=== PATIENT | female | born 1940 | race Two or more races ===

== ENCOUNTER 2019-04-26 08:44 | Inpatient (IN) | payer OTHER ==
[2019-04-26] VITALS (24 sets, daily range): BP systolic 62–186; BP diastolic 18–119
[~2019-04-26] VITALS: Ht 157.5 cm; Wt 86.6 kg
[2019-04-26] MEDS: DEXT 5% /NACL 0.9% 1,000 ML IV SCH (07:59)
[~2019-04-26 08:44] MED LIST: FURO-572 PO; LORA10TA19 PO; PRED20TA5 PO; Z-PACK
--- NOTE | 2019-04-26 08:44 | NUR ---
Patient BIBA ALS accompanied by FD, transferred to bed 8. RN evaluating patient at bedside.
[2019-04-26] MEDS ORDERED: NACL 0.9% 1,000 ML IV SCH (09:04)
[2019-04-26] MEDS ORDERED: cefTRIAXone 1,000 MG in DEXT 5% MINI-BAG PLUS 50 ML IV ONE (09:05)
--- NOTE | 2019-04-26 09:20 | NUR ---
PT PLACED ON SAMMI HUGGER, 3 LEAD ECG AND PULSE OX MONITOR.
[2019-04-26 09:27] LABS: MEAN CORPUSCULAR HEMOGLOBIN 31 pg (27-31); MEAN CORPUSCULAR HGB CONC 31 g/dL (33-37); MEAN CORPUSCULAR VOLUME 98.2 fL (80-94); PLATELET COUNT (AUTO) 531 K/uL (140-450)
--- NOTE | 2019-04-26 09:28 | NUR ---
CLEANED WITH SOAPY WARM WATER---PT REMAINS NON VERBAL BUT ABLE TO HELP WITH ATTEMPTING TO MOVE FROM ONE SIDE TO ANOTHER.
[2019-04-26] MEDS ORDERED: cefTRIAXone 1,000 MG VIAL ONE ×2 (09:32→10:14)
--- NOTE | 2019-04-26 09:36 | NUR ---
MELTON BEING PLACED BY DIRECTOR OF DATABASE MARKETING STUDENTS AND INSTRUCTOR.
[2019-04-26] MEDS ORDERED: IBUP-2213 PO (09:39)
[2019-04-26] MEDS ORDERED: HYDR1TAB73 PO (09:39)
[2019-04-26] MEDS ORDERED: [UNRECOGNIZED DRUG - CODE] PO (09:39)
[2019-04-26] MEDS ORDERED: ESOM40EC PO (09:39)
[2019-04-26] MEDS ORDERED: METF-988 PO (09:39)
[2019-04-26] MEDS ORDERED: ZOLP5TAB1 PO ×2 (09:39→20:31)
[2019-04-26] MEDS ORDERED: ICOS1SGL PO (09:39)
[2019-04-26] MEDS ORDERED: ALBU0.0912 IH (09:39)
[2019-04-26 09:44] LABS: HEMOGLOBIN 5.5 g/dL (12.0-16.0); WHITE BLOOD COUNT (AUTO) 28.6 K/uL (4.8-10.8)
[2019-04-26 09:45] LABS: HEMATOCRIT 17.7 % (36-48)
--- NOTE | 2019-04-26 09:45 | NUR ---
TAN SPOKE WITH OTS SON WHO STATED HE WOULD STOP BY LATER, DID NOT GIVE ETA
--- NOTE | 2019-04-26 09:45 | NUR ---
hemaglobin 5.5 hematocrit 17.7, received from lab reported to dr villalobos
[2019-04-26 09:47] LABS: LYMPHOCYTES % (MANUAL) 7 % (20-46)
--- NOTE | 2019-04-26 09:47 | NUR ---
wbc 28.[address] villalobos
[2019-04-26 09:48] LABS: EOSINOPHILS % (MANUAL) 2 % (0-4); MONOCYTES % (MANUAL) 8 % (5-12)
--- NOTE | 2019-04-26 09:50 | NUR ---
78 Y/F BIBA FOR ALOC AND HYPOGLYCEMIA PER EMS. PT NONVERBAL, TACHYPNIC WITH LABORED, EVEN RESPIRATIONS AT 26 PER MIN. PT BROUGHT IN ON NONREBREATHER AT 15L/ MIN. LUNGS CLEAR. ABDOMEN LARGE, DISTENDED AND ROUND. PT APPEARS SOILED, B FEET ARE SOILED. HX- CHF, PNEUMONIA NKDA
[2019-04-26 09:54] LABS: ALBUMIN 1.8 g/dL (3.4-5.0); ANION GAP 24.1 (8-16); ASPARTATE AMINOTRANSFERASE 364 U/L (15-37); CHLORIDE 111 mmol/L (98-107); CREATININE 1.6 mg/dL (0.6-1.3); GLUCOSE 80 mg/dL (74-106); SODIUM SERUM 144 mmol/L (136-145); TOTAL BILIRUBIN 1.7 mg/dL (0.0-1.0)
[2019-04-26 09:58] LABS: POTASSIUM 6.1 mmol/L (3.5-5.1); UREA NITROGEN, BLOOD 117 mg/dL (7-18)
--- NOTE | 2019-04-26 10:47 | NUR ---
REDNESS/ RASH ON B CHEEKS OF FACE, WOUNDS WITH VARIOUS STAGING OF HEALING ON B LEGS, REDDENED SACRAL AREA. NO OPEN WOUNDS NOTED. PT WITH MAL ODOR AND BAD HYGIENE.
--- NOTE | 2019-04-26 10:49 | NUR ---
TAN SPOKE WITH RECREATIONAL PROGRAMS DIRECTOR IN REGARD TO POSSIBLE PT NEGLET AT HOME. RECREATIONAL PROGRAMS DIRECTOR STATE THEY WILL CALL BACK
[2019-04-26 11:02] LABS: APPEARANCE,URINE HAZY (CLEAR); BILIRUBIN,URINE NEGATIVE (NEGATIVE); BLOOD, URINE NEGATIVE (NEGATIVE); COLOR,URINE YELLOW (YELLOW); LEUKOCYTE ESTERASE ,URINE 1+ (NEGATIVE); NITRITE, URINE NEGATIVE (NEGATIVE); UGLUCOSE NEGATIVE (NEGATIVE)
[2019-04-26 11:14] LABS: RBC,URINE 0 /HPF (0-5)
--- NOTE | 2019-04-26 11:34 | NUR ---
LAB AT BEDSIDE.
[2019-04-26] MEDS ORDERED: NACL 0.9% 1,000 ML IV ONE ×3 (11:50→14:25)
--- NOTE | 2019-04-26 12:00 | NUR ---
DR. NUGENT AT BEDSIDE.
--- NOTE | 2019-04-26 12:03 | NUR ---
A SECOND BOLUS STARTED
[2019-04-26] MEDS ORDERED: SODIUM POLYSTYRENE 15 GM/60 ML UDBTL PR ONE (12:35)
--- NOTE | 2019-04-26 13:00 | NUR ---
CALLED [facility] AND SPOKE WITH NELSON, REPORT NUMBER [id number]
--- NOTE | 2019-04-26 13:07 | NUR ---
NADR, PT MUMBLING. UNCOMPREHENSIVE.
[2019-04-26] MEDS ORDERED: VANCOMYCIN PER PHARMACY MC PRN (13:15)
[2019-04-26] MEDS ORDERED: DEXT 5% / NACL 0.45% 1,000 ML IV ONE (13:15)
[2019-04-26] MEDS ORDERED: ACETAMINOPHEN 325 MG TAB PO PRN (13:15)
--- NOTE | 2019-04-26 13:29 | NUR ---
NG TUBE INSERTED BY NÉSTOR PEDRAZA AND ROSEMARY RN ACCOMPANIED BY FLORA PEDRAZA, GASTRIC RESIDUAL RETURN
--- NOTE | 2019-04-26 13:34 | NUR ---
Dr. Crawford is evaluating the patient at bedside.
[2019-04-26] MEDS ORDERED: SODIUM POLYSTYRENE 15 GM/60 ML UDBTL NG ONE (14:00)
[2019-04-26] MEDS ORDERED: LORazepam 2 MG/ML VIAL IVP SCH (14:00)
--- NOTE | 2019-04-26 14:45 | NUR ---
DR. PRINGLE CAME IN TO SEE PATIENT AT BEDSIDE, WILL FOLLOW UP WITH NEW ORDERS.
--- NOTE | 2019-04-26 14:45 | NUR ---
Patient will be admitted to care of DR. WEBSTER. Admited to ICU . Will go to room 3 . Belongings list completed. Report to MILO VALDIVIA.
--- NOTE | 2019-04-26 14:45 | NUR ---
RECEIVED PATIENT TRANSFERRED FROM ER VIA GURNEY, PT IS AAOX1, FOLLOW COMMANDS SOMETIMES, AGITATED, RESTLESSNESS, TEMP 96.4, BP 94/50, RR 36, O2 SAT 96%, FLACC 7, NO S/S OF DISTRESS, RHONCHI LUNG SOUNDS ALINA. ON O2 AT 5L VIA NC, SR ON GLOVE TURNER AND FORMER, CAP REFILL <2 SEC, PITTING 3+ EDEMA ON ALINA.LOWER EXTREMITIES, MELTON CATHETER PLACED IN ER WITH CLEAR YELLOW URINE VIA GRAVITY, LARGE DISTENDED ABDOMEN NOTED, NGT PLACED IN ER, POSITIVE PLACEMENT CHECKED, SKIN IS WARM AND DRY TO TOUCH, OPEN WOUND PRESENT, PICTURE TAKEN (SEE WOUND ASSESSMENT), ABLE TO MOVE ALL EXTREMITIES, GENERALIZED WEAKNESS NOTED, IV TO RIGHT AC 20GA, PATENT AND SL. HOB EVEVATED 30 DEGREES, SAFETY MEASURES IN PLACE, POSITION CHANGED FOR COMFORT, WILL CONTINUE TO MONITOR.
[2019-04-26] MEDS ORDERED: DEXTROSE 50% 50 ML SYR IVP PRN (14:50)
[2019-04-26] MEDS ORDERED: Z-GUARD PASTE TP ONE (14:51)
[2019-04-26] MEDS ORDERED: VANCOMYCIN HCL 750 MG in DEXTROSE 5% 250 ML IV SCH (15:00)
--- NOTE | 2019-04-26 15:10 | NUR ---
DR. URIBE SPOKE TO PATIENT'S SON FUNMILAYO SORENSEN ON THE PHONE REGARDING PATIENT'S CONDITION AND NEEDS FOR CENTRAL LINE AND BLOOD TRANSFUSION, CONSENT OBTAINED AT THIS TIME, TWO RNS WITNESS.
--- NOTE | 2019-04-26 15:50 | NUR ---
TIME OUT FOR CENTRAL LINE INSERTION, DR. URIBE WILL PERFORM THE PROCEDURE, US TECH AND RN AT BEDSIDE FOR ASSIST.
[2019-04-26] MEDS ORDERED: ACETAMINOPHEN 325 MG TAB PO SCH (16:00)
[2019-04-26 16:18] LABS: FREE T4 (FREE THYROXINE) 1.03 ng/dL (0.76-1.46); MAGNESIUM 2.6 mg/dL (1.8-2.4); PHOSPHORUS 8.5 mg/dL (2.5-4.9); THYROID STIMULATING HORMONE 7.7 uIU/mL (0.34-3.74)
[2019-04-26 16:33] LABS: PROTHROMBIN TIME 15.8 secs (10.8-13.4)
--- NOTE | 2019-04-26 16:40 | NUR ---
DR. ADLER INSERTED CENTRAL LINE TO LEFT IJ TLC, X-RAY DONE, WAITING FOR CONFIRMATION OF PLACEMENT.
[2019-04-26] MEDS ORDERED: CRUSHER, PILL MC ONE (17:36)
--- NOTE | 2019-04-26 17:40 | NUR ---
US ABDOMEN AT BEDSIDE
[2019-04-26] MEDS: BLOOD GLUCOSE MONITORING 1 DEV DEV FS SCH ×2 (17:50→20:38)
--- NOTE | 2019-04-26 17:52 | NUR ---
BLOOD TRANSFUSION STARTED, VSS CHECKED AND BENADRYL GIVEN BEFORE, WILL CONTINUE CLOSE MONITOR.
[2019-04-26] MEDS: Z-GUARD PASTE TP SCH (18:54)
[2019-04-26] MEDS: ALBUTEROL SULFATE/IPRATROPIU 3 ML SOL IH SCH (18:55)
[2019-04-26] MEDS: NOREPINEPHRINE 16 MG in DEXTROSE 5% 250 ML IV PRN (18:57)
--- NOTE | 2019-04-26 19:25 | NUR ---
RT IS CURRENTLY AT BEDSIDE PROVIDING BREATHING TREATMENT
--- NOTE | 2019-04-26 19:30 | NUR ---
BEDSIDE SHIFT REPORT RECEIVED FROM DAY SHIFT NURSE. PT IS A&OX1 TO NAME. GCS=8. AROUSABLE TO SHAKING AND LIGHT PAIN. EYES ARE SLUGGISH. 5MM. O2 VIA NC AT 2 LPM. LUNG SOUNDS CLEAR THROUGHOUT. PT HAS LEFT IJ THAT IS CURRENTLY RUNNING BLOOD TRANSFUSION, D5NS AT 50ML/HR. PT HAS RIGHT AC 20G RUNNING LEVOPHED DRIP AT 5 MCG/KG/MIN TO MAINTAIN SBP AT ABOVE 90. BOTH SITES ARE ASYMPTOMATIC, PATENT AND INTACT. PT ABDOMEN IS ROUND, FIRM. BOWEL SOUNDS HEARD. PT HAS NGT. PT IS NPO EXCEPT MEDS. MELTON CATHETER WAS FOUND. PT HAS BILATERAL LOWER EXTREMITY SCABS AND INCONTINENT DERMATITIS. BED IS LOCKED IN LOWEST POSITION, CALL LIGHT WITHIN REACH, WILL CONTINUE TO MONITOR. Addendum: 04/27/19 at 0022 by Arnoldo Morfin RN RN IVF IS ACTUALLY D5 1/2NS AT 100 ML/HR. LEVOPHED DRIP CONCENTRATION 16 MG. DRY WEIGHT 80KG. 2+ PITTING EDEMA PRESENT ALL FOUR EXTREMITIES. CLEAR YELLOW URINE NOTED INSIDE MELTON BAG. TEMP 98.0.
[2019-04-26] MEDS: ALBUTEROL SULFATE/IPRATROPIU 3 ML SOL IH PRN (20:00)
[2019-04-26] MEDS ORDERED: PIPERACILLIN/TAZOBACTAM 2.25 GM VIAL IV ONE (20:15)
[2019-04-26] MEDS: PIPERACILLIN/TAZOBACTAM 2.25 GM in DEXTROSE 5% 50 ML IV SCH (20:27)
[2019-04-26] MEDS ORDERED: BISA-188 PO (20:31)
--- NOTE | 2019-04-26 20:45 | NUR ---
1 UNIT OF PRBC's COMPLETE, FLUSHED LINE WITH NS AND SALINE LOCKED. NO ADVERSE REACTION NOTED, WILL FOLLOWUP WITH CBC AND FURTHER ORDERS.
[2019-04-26] MEDS ORDERED: ICOSAPENT ETHYL 1 GM PO SCH (21:00)
[2019-04-26] MEDS ORDERED: SODIUM BICARBONATE 8.4% PFS 50 MEQ/50 ML SYR IVP ONE ×2 (21:00)
[2019-04-26] MEDS: DOCUSATE SODIUM 100 MG GELCAP PO SCH (21:00)
[2019-04-26] MEDS ORDERED: metroNIDAZOLE 500 MG/NS PREMIX 100 ML IV SCH (21:00)
--- NOTE | 2019-04-26 21:00 | NUR ---
CALLED FAMILY. UPDATED THEM ON POC.
[2019-04-26] MEDS: SODIUM BICARBONATE 8.4% 50 MEQ in NACL 0.9% 1,000 ML IV SCH (21:05)
[2019-04-26] MEDS: LACTULOSE 20 GM/30 ML UDC PO SCH (21:15)
--- NOTE | 2019-04-26 21:15 | NUR ---
ER MD DR. HUDSON AND RT's AT BEDSIDE TO START INTUBATION. 20MG ETOMIDATE ORDERED AND GIVEN, FLUSHED WITH 10 ML NS, 50MG ROCURONIUM ORDERED AND GIVEN FOLLOWED WITH 10ML FLUSH. SUCCESSFUL INTUBATION AT 2114 ON FIRST ATTEMPT, 24 AT LIP LINE, POSITIVE LUNG SOUNDS, CONNECTED TO VENT WITH ACVC 16, FI02 100%, TV 450, PEEP 5. SATURATIONS 100%. VISIBLE AND EQUAL CHEST RISE. ALL SAFETY PRECAUTIONS IN PLACE. PRIMARY AND CHARGE NURSE AT BEDSIDE. XRAY COMPLETE FOR PLACEMENT AND TO CONFIRM NGT PLACEMENT. WILL FOLLOWUP WITH NEW ORDERS.
--- NOTE | 2019-04-26 21:18 | NUR ---
RADIOLOGY AT BEDSIDE FOR CXR
[2019-04-26] MEDS ORDERED: ETOMIDATE 20 MG/10 ML VIAL IVP ONE (21:20)
[2019-04-26] MEDS ORDERED: ROCURONIUM 50 MG/5 ML VIAL IV ONE (21:20)
[2019-04-26 21:34] LABS: MEAN CORPUSCULAR HEMOGLOBIN 31 pg (27-31); MEAN CORPUSCULAR HGB CONC 33 g/dL (33-37); MEAN CORPUSCULAR VOLUME 93.1 fL (80-94); PLATELET COUNT (AUTO) 466 K/uL (140-450); RED BLOOD CELL COUNT(AUTO) 2.08 MIL/uL (4.20-5.40); RED CELL DISTRIBUTION WIDTH 16.6 % (11.6-13.7)
--- NOTE | 2019-04-26 21:45 | NUR ---
SPUTUM CULTURE COLLECTED AND SENT TO LAB.
[2019-04-26 21:49] LABS: HEMATOCRIT 19.4 % (36-48); HEMOGLOBIN 6.3 g/dL (12.0-16.0); WHITE BLOOD COUNT (AUTO) 29.9 K/uL (4.8-10.8)
--- NOTE | 2019-04-26 21:55 | NUR ---
LAB CALLED FOR CRITICAL LABS. REPORTED VALUES TO DR. EVANS. ORDERED UNIT OF BLOOD.
[2019-04-26 21:57] LABS: ALBUMIN 1.6 g/dL (3.4-5.0); ANION GAP 19.6 (8-16); ASPARTATE AMINOTRANSFERASE 361 U/L (15-37); CARBON DIOXIDE 18.7 mmol/L (21-32); CHLORIDE 113 mmol/L (98-107); CREATININE 1.6 mg/dL (0.6-1.3); GLUCOSE 165 mg/dL (74-106); POTASSIUM 5.3 mmol/L (3.5-5.1); SODIUM SERUM 146 mmol/L (136-145); TOTAL BILIRUBIN 1.9 mg/dL (0.0-1.0)
[2019-04-26 21:59] LABS: UREA NITROGEN, BLOOD 114 mg/dL (7-18)
--- NOTE | 2019-04-26 22:00 | NUR ---
LAB CALLED FOR TWO CRITICAL VALUES. LACTIC ACID 4.5 AND BUN 114. DID NOT REPORT TO DOCTOR DUE TO VALUES TRENDING DOWNWARD.
--- NOTE | 2019-04-26 22:10 | NUR ---
PROVIDED VAP ORAL CARE, PATIENT HAS SMALL AMOUNT OF BLOOD NOTED, HAS MISSING TOOTH AND MOUTH IS DRY, GUMS ARE SENSITIVE. WILL CONTINUE TO MONITOR.
--- NOTE | 2019-04-26 23:37 | NUR ---
RT DECREASED FI02 TO 30%.
[2019-04-27] VITALS (103 sets, daily range): BP systolic 59–147; BP diastolic 17–99
--- NOTE | 2019-04-27 00:03 | NUR ---
RADIOLOGIST AWARE THAT THERE IS ORDER FOR HEAD CT, PATIENT IS TOO UNSTABLE AT THIS TIME TO LEAVE UNIT FOR EXAM, PRESSORS IN PLACE, BLOOD TRANSFUSION INFUSING AND PENDING ON SEDATION MEDICATIONS. WILL FOLLOWUP WHEN PATIENT IS AVAILABLE.
[2019-04-27] MEDS: MIDAZOLAM MDV 50 MG in NACL 0.9% 40 ML IV PRN ×2 (01:18→17:21)
--- NOTE | 2019-04-27 01:18 | NUR ---
STARTED VERSED DRIP
[2019-04-27] MEDS: fentaNYL 1 MG in NACL 0.9% 80 ML IV PRN ×2 (01:32→17:18)
--- NOTE | 2019-04-27 01:32 | NUR ---
STARTED FENTANYL DRIP
--- NOTE | 2019-04-27 01:47 | NUR ---
RT INCREASED FLOW TO 60
--- NOTE | 2019-04-27 02:47 | NUR ---
INCREASED FLOW TO 80
[2019-04-27] MEDS ORDERED: PHENYLEPHRINE 10 MG/ML VIAL ONE (03:07)
[2019-04-27] MEDS: PHENYLEPHRINE 40 MG in NACL 0.9% 250 ML IV PRN ×4 (03:30→19:58)
--- NOTE | 2019-04-27 03:30 | NUR ---
NEOSYNEPHRINE PRESSOR STARTED, PATIENT ALREADY ON LEVOPHED DRIP AND MAXED OUT AT 30MCG/MIN. NEW PERIPHERAL IV STARTED AT LEFT AC 20G, GOOD BLOOD RETURN, SUCCESSFUL ON FIRST ATTEMPT, PATENT WITHOUT SYMPTOMS. Y TUBE PRIMED WITH NS AND READY FOR BLOOD TRANSFUSION. WILL CARRY OUT.
--- NOTE | 2019-04-27 03:55 | NUR ---
STARTED BLOOD TRANSFUSION
[2019-04-27] MEDS ORDERED: PIPERACILLIN/TAZOBACTAM 2.25 GM VIAL IV ONE (04:30)
[2019-04-27] MEDS: PIPERACILLIN/TAZOBACTAM 2.25 GM in DEXTROSE 5% 50 ML IV SCH ×3 (05:00→20:09)
--- NOTE | 2019-04-27 05:46 | NUR ---
RESIDENT MD MADE AWARE THAT PATIENT IS MAXED ON BOTH PRESSORS-NEOSYNEPHRINE AND LEVOPHED. BLOOD PRESSURE 85/45. ALSO MADE AWARE THAT BLOOD TRANSFUSION CURRENTLY IN PLACE-2 UNIT. PENDING NEW ORDERS.
[2019-04-27] MEDS ORDERED: NACL 0.9% 500 ML IV SCH (05:50)
[2019-04-27] MEDS: ALBUTEROL SULFATE/IPRATROPIU 3 ML SOL IH SCH ×3 (06:31→20:19)
[2019-04-27] MEDS ORDERED: VASOPRESSIN 20 UNITS/ML VIAL ONE (06:48)
[2019-04-27] MEDS: NOREPINEPHRINE 16 MG in DEXTROSE 5% 250 ML IV PRN ×2 (07:09→16:43)
--- NOTE | 2019-04-27 07:30 | NUR ---
RECEIVED BEDSIDE REPORT FROM COMPOUND COATING MACHINE OFFBEARER NURSE, PT IS SEDATED RASS -4, PERRL, UNABLE TO FOLLOW COMMANDS, FLACC 0, TEMP 98.9, BP 60/35, RR 26, O2 SAT 99%, ETT TO VENT , AC MODE WITH FIO2 30 TV 450, R 16, PEEP 5, NO S/S OF DISTRESS, RHONCHI LUNG SOUNDS ALINA. ST ON NEWS ASSISTANT, CAP REFILL <2 SEC, PITTING 3+ EDEMA ON ALINA.LOWER EXTREMITIES, MELTON CATHETER IN PLACE WITH CLOUDY MARY URINE VIA GRAVITY, LARGE DISTENDED ABDOMEN NOTED, NGT IN PLACE, POSITIVE PLACEMENT CHECKED, SKIN IS WARM AND DRY TO TOUCH, OPEN WOUND PRESENT,(SEE WOUND ASSESSMENT), GENERALIZED WEAKNESS TO ALL EXTREMITIES, CENTRAL LINE TO LIJ, TLC, RUNNING LEVOPHED AT 30 MCG/MIN, JENNIFER AT 150 MCG/MIN, VERSED AT 1MG/HR, FENTANYL AT 0.5 MCG/KG/MIN, AND D5NS AT 50ML/HR, IV TO LEFT AC 20GA, PATENT AND SL. HOB ELEVATED 30 DEGREES, SAFETY MEASURES IN PLACE, ORAL CARE PROVIDED, POSITION CHANGED FOR OFF LOAD PRESSURE , WILL CONTINUE TO MONITOR.
--- NOTE | 2019-04-27 07:40 | NUR ---
DR. PRINGLE CAME IN TO SEE PATIENT AT BEDSIDE, WILL FOLLOW UP WITH NEW ORDERS.
[2019-04-27] MEDS: VASOPRESSIN 20 UNITS in NACL 0.9% 250 ML IV SCH ×2 (07:48→16:24)
[2019-04-27] MEDS: BLOOD GLUCOSE MONITORING 1 DEV DEV FS SCH ×4 (08:21→21:00)
[2019-04-27] MEDS: INSULIN LISPRO SLIDING SCALE 100 UNITS/ML VIAL SUBQ PRN ×4 (08:24→20:10)
--- NOTE | 2019-04-27 08:49 | NUR ---
PATIENT HAS BEEN SCREENED AND CATEGORIZED HIGH NUTRITION RISK. PATIENT WILL BE SEEN WITHIN 1-2 DAYS OF ADMISSION. 04/27/19-04/28/[address]
[2019-04-27] MEDS: SODIUM BICARBONATE 8.4% 50 MEQ in NACL 0.9% 1,000 ML IV SCH ×2 (08:50→19:00)
--- NOTE | 2019-04-27 09:20 | NUR ---
SCHEDULED MEDICATION GIVEN VIA NGT, NO RESIDUALS, PT TOLERATED WELL.
[2019-04-27] MEDS: PANTOPRAZOLE 40 MG INJ VIAL IVP SCH (09:25)
[2019-04-27] MEDS: DOCUSATE SODIUM 100 MG GELCAP PO SCH (09:26)
[2019-04-27] MEDS: LACTULOSE 20 GM/30 ML UDC PO SCH (09:26)
[2019-04-27] MEDS: Z-GUARD PASTE TP SCH (09:26)
--- NOTE | 2019-04-27 10:00 | NUR ---
NO CHANGE OF CONDITION, VSS, FLACC 0, POSITION CHANGED FOR OFF LOAD PRESSURE.
[2019-04-27 10:01] LABS: BASOPHILS # (AUTO) 0.1 K/uL (0.00-0.22); BASOPHILS % (AUTO) 0.3 % (0.0-2.0); EOSINOPHILS # (AUTO) 0.3 K/uL (0-0.4); EOSINOPHILS % (AUTO) 1.3 % (0.0-4.0); HEMATOCRIT 26.5 % (36-48); HEMOGLOBIN 8.8 g/dL (12.0-16.0); MEAN CORPUSCULAR HEMOGLOBIN 30 pg (27-31); MEAN CORPUSCULAR HGB CONC 33 g/dL (33-37); MEAN CORPUSCULAR VOLUME 90.7 fL (80-94); MONOCYTES # (AUTO) 3.5 K/uL (0.8-1.0); MONOCYTES % (AUTO) 14.1 % (1.7-9.3); NEUTROPHILS % (AUTO) 76.3 % (42.2-75.2); PLATELET COUNT (AUTO) 498 K/uL (140-450); RED BLOOD CELL COUNT(AUTO) 2.92 MIL/uL (4.20-5.40); RED CELL DISTRIBUTION WIDTH 16.8 % (11.6-13.7); WHITE BLOOD COUNT (AUTO) 24.8 K/uL (4.8-10.8)
[2019-04-27] MEDS ORDERED: PROBIOTIC SCREEN 1 EA MISC MC PRN (10:35)
[2019-04-27 11:24] LABS: ANION GAP 21.5 (8-16); CARBON DIOXIDE 17.7 mmol/L (21-32); CHLORIDE 113 mmol/L (98-107); CREATININE 1.7 mg/dL (0.6-1.3); GLUCOSE 223 mg/dL (74-106); POTASSIUM 5.2 mmol/L (3.5-5.1); SODIUM SERUM 147 mmol/L (136-145)
[2019-04-27 11:25] LABS: ALBUMIN 1.7 g/dL (3.4-5.0); BILIRUBIN,DIRECT 1.8 mg/dL (0.0-0.3); TOTAL BILIRUBIN 2.2 mg/dL (0.0-1.0)
[2019-04-27 11:41] LABS: UREA NITROGEN, BLOOD 114 mg/dL (7-18)
--- NOTE | 2019-04-27 12:00 | NUR ---
NO S/S OF DISTRESS, STILL SEDATED WITH RASS -3, VSS, FLACC 0, ORAL CARE PROVIDED, POSITION CHANGED FOR OFF LOAD PRESSURE.
[2019-04-27 12:02] LABS: CHOL/HDL RATIO 6.7 (1-4.5)
--- NOTE | 2019-04-27 12:20 | NUR ---
DR. ASHRAF CAME IN TO SEE PATIENT AT BEDSIDE, WILL FOLLOW UP WITH NEW ORDERS.
[2019-04-27 12:44] LABS: MAGNESIUM 2.1 mg/dL (1.8-2.4)
[2019-04-27 12:45] LABS: PHOSPHORUS 7.3 mg/dL (2.5-4.9)
[2019-04-27] MEDS: methylPREDNISolone SS 125 MG/2 ML VIAL IVP SCH ×3 (12:45→23:19)
--- NOTE | 2019-04-27 13:09 | NUR ---
CVP PLACED TO [facility] PER DR. ASHRAF'S ORDER, RESULT OF 12 AT THIS TIME, DR. JONES AWARE.
--- NOTE | 2019-04-27 14:00 | NUR ---
NO S/S OF DISTRESS, VSS, FLACC 0, POSITION CHANGED FOR OFF LOAD PRESSURE.
--- NOTE | 2019-04-27 15:00 | NUR ---
OFF UNIT FOR CT SCAN, RT, RN AND DRYWALL SANDER AT BEDSIDE.
[2019-04-27] MEDS ORDERED: LORazepam 2 MG/ML VIAL ONE (15:19)
--- NOTE | 2019-04-27 15:30 | NUR ---
PT HAD A SEIZURE ACTIVITY WITH SHAKING AND WIDE OPEN EYES WITH FIXED PUPIL, HR RATE >200'S, LAST ABOUT 1 MIN, THEN STOPPED 20 SEC, AND AGAIN FOR 1 MINS, ATIVAN GIVEN, STOPPED SEIZURE ACTIVITY AFTER GIVEN, DR. ADLER MADE AWARE.
[2019-04-27] MEDS ORDERED: LORazepam 2 MG/ML VIAL IM/IVP SCH (15:34)
[2019-04-27] MEDS: DEXT 5% /NACL 0.9% 1,000 ML IV SCH (15:35)
[2019-04-27] MEDS: VANCOMYCIN 1,000 MG in NACL 0.9% 250 ML IV SCH (15:54)
--- NOTE | 2019-04-27 16:00 | NUR ---
PM CARE AND ORAL CARE PROVIDED, MELTON CATHETER CARE DONE, POSITION CHANGED FOR OFF LOAD PRESSURE.
--- NOTE | 2019-04-27 16:02 | NUR ---
04/27/19 INITIAL ASSESSMENT COMPLETED PLEASE REFER TO NUTRITION ASSESSMENT UNDER CARE ACTIVITY FOR ESTIMATED NUTRITIONAL NEEDS. 1. CONTINUE NPO DIET PER MD 2. IF/WHEN MEDICALLY APPROPRIATE, RECOMMEND GLUCERNA 1.2 @ 60 ML/HR. START RATE @ 10 ML/HR AND ADVANCE TOLERATED. -THIS PROVIDES 1440 ML IN FLUIDS, 1728 KCALS, AND 86 GM OF PROTEIN. THIS IS MEETING >100% OF PTS CALORIC NEEDS AND >100% OF PTS PROTEIN NEEDS. 3. FREE WATER FLUSH: [address] TO FOLLOW-UP 2-3 DAYS, HIGH RISK CON TOM RD
--- NOTE | 2019-04-27 18:00 | NUR ---
RESTING IN BED, NO S/S OF DISTRESS, VSS, FLACC 0, POSITION CHANGED FOR OFF LOAD PRESSURE.
[2019-04-27] MEDS: ALBUMIN HUMAN 25% 50 ML IV SCH ×2 (18:01→20:26)
--- NOTE | 2019-04-27 19:25 | NUR ---
REPORT GIVEN TO ELECTRIC ORGAN INSPECTOR AND REPAIRER NURSE AT BEDSIDE FOR CONTINUE OF CARE
--- NOTE | 2019-04-27 19:25 | NUR ---
BEDSIDE REPORT RECEIVED FROM AM SHIFT RN, PT SEDATED, RASS -2. PT ETT TO VENT. ON ACVC MODE. FIO2 30, TV 450, RATE 16. PEEP 5. CENTRAL R NARE, NGT TO FEEDING. 0 RESIDUALS NOTED. LUNG SOUNDS CLEAR. HEART SOUNDS HEARD S1 AND S2. ABDOMEN SOFT AND ROUND, NON TENDER. BOWEL SOUNDS ACTIVE. SKIN WARM AND DRY. GENERALIZED EDEMA 3+ PITTING. WOUND NOTED, SEE WOUND ASSESSMENT. LIJ CENTRAL LINE INFUSING LEVOPHED 26 MCG/MIN, JENNIFER 50MCG/HR, VASOPRESSIN 0.03UNITS/MIN, VERSED 1 MG/HR, FENTANYL 0.5. MCG/KG/MIN. DRY WEIGHT 80 KG. LEFT AC 20 GAUGE, INFUSING SODIUM BICARB AT 100ML/HR AND ALBUMIN 50 ML/HR. MELTON CATHETER IN PLACE. HOB 30 DEGREES. BED LOCKED IN LOWEST POSITION. WILL CONTINUE TO MONITOR. Addendum: 04/28/19 at 0014 by Gaurav Duong RN ON CVP MONITORING, ARTERIAL LINE ZEROED.
--- NOTE | 2019-04-27 20:33 | NUR ---
RECEIVED INTUBATED PT WITH ETT SIZE 7.0 SECURED WITH ANCHOR-FAST AT 23CM @ THE LIP. PT IS ON VENT SETTINGS AC 16, 450, PEEP 5, FiO2 30%. VENT PLUGGED IN RED OUTLET, ALARMS SET AND AUDIBLE, BVM AT BEDSIDE, AND HOB > 30. PT IS IN NO APPARENT RESPIRATORY DISTRESS AT THIS TIME: RR 17, HR 94, SPO2 96%, AND CLEAR BREATH SOUNDS ON THE UPPER LOBES AND COARSE BREATH SOUNDS ON THE LOWER BASES. SUCTION SMALL AMOUNT OF YELLOW THICK SECRETIONS FROM ETT. HHN TX GIVEN ORDERED WITH NO ADVERSE REACTIONS. WILL CONTINUE TO MONITOR PT.
--- NOTE | 2019-04-27 22:00 | NUR ---
FAMILY AT BEDSIDE.
[2019-04-28] VITALS (98 sets, daily range): BP systolic 92–147; BP diastolic 33–94
--- NOTE | 2019-04-28 00:15 | NUR ---
PT ETT TO VENT. LUNG SOUNDS CLEAR. RESPIRATIONS EVEN AND UNLABORED. CHEST RISE IS SYMMETRICAL. NO DISTRESS NOTED. HOB 30 DEGREES. BED LOCKED IN LOWEST POSITION. WILL CONTINUE TO MONITOR.
--- NOTE | 2019-04-28 02:24 | NUR ---
ETT TO VENT, SEDATED, RASS -2, RESPIRATIONS EVEN AND UNLABORED, CHEST RISE IS SYMMETRICAL. HOB 30 DEGREES. BED LOCKED IN LOWEST POSITION. WILL CONTINUE TO MONITOR.
[2019-04-28] MEDS: NOREPINEPHRINE 16 MG in DEXTROSE 5% 250 ML IV PRN (03:05)
[2019-04-28] MEDS: PIPERACILLIN/TAZOBACTAM 2.25 GM in DEXTROSE 5% 50 ML IV SCH ×3 (04:03→21:04)
[2019-04-28] MEDS: VASOPRESSIN 20 UNITS in NACL 0.9% 250 ML IV SCH (04:07)
--- NOTE | 2019-04-28 04:36 | NUR ---
PT RESTING IN BED, EYES CLOSED. RESPIRATIONS EVEN AND UNLABORED. CHEST RISE IS SYMMETRICAL. HOB 30 DEGREES. BED LOCKED IN LOWEST POSITION. WILL CONTINUE TO MONITOR.
[2019-04-28] MEDS: methylPREDNISolone SS 125 MG/2 ML VIAL IVP SCH ×2 (05:24→12:58)
[2019-04-28] MEDS ORDERED: CALCIUM ACETATE 667 MG TAB PO ONE (05:35)
[2019-04-28] MEDS: NACL 0.9% 1,000 ML IV SCH (05:40)
--- NOTE | 2019-04-28 06:00 | NUR ---
PT PLACED ON BILAT SOFT WRIST RESTRAINTS.
[2019-04-28] MEDS: SODIUM BICARBONATE 8.4% 50 MEQ in NACL 0.9% 1,000 ML IV SCH (06:43)
[2019-04-28 06:44] LABS: MAGNESIUM 2.2 mg/dL (1.8-2.4); PHOSPHORUS 4.2 mg/dL (2.5-4.9)
[2019-04-28] MEDS: ALBUTEROL SULFATE/IPRATROPIU 3 ML SOL IH SCH ×3 (06:48→19:43)
[2019-04-28 06:50] LABS: ANION GAP 12.9 (8-16); CARBON DIOXIDE 22.6 mmol/L (21-32); CHLORIDE 115 mmol/L (98-107); CREATININE 1.2 mg/dL (0.6-1.3); GLUCOSE 327 mg/dL (74-106); POTASSIUM 4.5 mmol/L (3.5-5.1); SODIUM SERUM 146 mmol/L (136-145)
[2019-04-28 06:54] LABS: BASOPHILS % (AUTO) 0.1 % (0.0-2.0); EOSINOPHILS % (AUTO) 0.1 % (0.0-4.0); HEMATOCRIT 22.6 % (36-48); HEMOGLOBIN 7.5 g/dL (12.0-16.0); LYMPHOCYTES # (AUTO) 1.4 K/uL (2.5-16.5); LYMPHOCYTES % (AUTO) 5.9 % (20.5-51.1); MEAN CORPUSCULAR HEMOGLOBIN 30 pg (27-31); MEAN CORPUSCULAR HGB CONC 33 g/dL (33-37); MEAN CORPUSCULAR VOLUME 91.2 fL (80-94); MONOCYTES # (AUTO) 1.3 K/uL (0.8-1.0); MONOCYTES % (AUTO) 5.1 % (1.7-9.3); NEUTROPHILS # (AUTO) 21.8 K/uL (1.8-7.7); NEUTROPHILS % (AUTO) 88.8 % (42.2-75.2); PLATELET COUNT (AUTO) 377 K/uL (140-450); RED BLOOD CELL COUNT(AUTO) 2.48 MIL/uL (4.20-5.40); RED CELL DISTRIBUTION WIDTH 17.8 % (11.6-13.7); WHITE BLOOD COUNT (AUTO) 24.6 K/uL (4.8-10.8)
[2019-04-28 06:58] LABS: UREA NITROGEN, BLOOD 87 mg/dL (7-18)
--- NOTE | 2019-04-28 07:05 | NUR ---
RECIVED PT ON VENT WITH SETTINGS CHARTED BREATH SOUNDS PRESENT BILAT DIMINISHED SXN P WITH MIN TO MOD AMT REDDISH SECS ETT SECURE AMBU BAG AT BEDSIDE VENT PLUGGED INTO RED OUTLET WILL CONTINUE TO MONITOR PT ON VENT
--- NOTE | 2019-04-28 07:20 | NUR ---
BEDSIDE REPORT GIVEN TO AM SHIFT RN FOR CONTINUITY OF CARE.
--- NOTE | 2019-04-28 09:00 | NUR ---
ON DUTY RECEIVED THIS PT ON VENT, SETTING AC 16-30%-450-5. ON SEDATION. VERSED 2MG/HR AND PHENTANYL 0.5. PT ALSO ON BP SUPPORT: LEVEPHED 24MCG AND VASPPRESSOR 0.03. BP WAS STABLE. STARTED TO TITRIP DOWN THE LEVEPHED TO 21MCG. PT WAS AGITATED IN BEGING. BUT GRADUALLY BECOMES QUIT DOWN.
[2019-04-28] MEDS: BLOOD GLUCOSE MONITORING 1 DEV DEV FS SCH ×4 (09:18→21:10)
[2019-04-28] MEDS: INSULIN LISPRO SLIDING SCALE 100 UNITS/ML VIAL SUBQ PRN ×4 (09:23→21:11)
[2019-04-28] MEDS: LACTULOSE 20 GM/30 ML UDC PO SCH (09:29)
[2019-04-28] MEDS: PANTOPRAZOLE 40 MG INJ VIAL IVP SCH (09:29)
[2019-04-28] MEDS: Z-GUARD PASTE TP SCH (09:30)
[2019-04-28] MEDS ORDERED: FUROSEMIDE 40 MG/4 ML VIAL IVP SCH (09:30)
[2019-04-28] MEDS: LACTOBACILLUS RHAMNOSUS GG 1 EACH CAP PO SCH (09:30)
--- NOTE | 2019-04-28 10:43 | NUR ---
MORNING MADINE GIVEN PER MD ORDER. PT TOLERATED LEVEPHED TITRIPING DONW. LEVEPHED @17MCG AND BP ON 113/45-10HR MORMONING BLOOD SUGAR DONE 328@0915 WHEN I CAME IN. (LATE CALL IN)INSULINE GIVEN PER SLIDING SCALE.
--- NOTE | 2019-04-28 11:16 | NUR ---
DISCHARGE PLANNING: THIS IS AN 78 Y/O FEMALE HOME, WHO CAME IN DUE TO ALTERED MENTAL STATUS. PAST MEDICAL HISTORY INCLUDE HTN, DM, CHF, ASTHMA AND HLD. INITIAL DIAGNOSIS OF SEPTIC SHOCK 2/2 TO ASPIRATION PNEUMONIA. PATIENT WAS ORALLY INTUBATED IN ICU 04/26/2019 AND WAS TO VENT FIO2 30%.ON VASOPRESSIN, FENTANYL AND VERSED DRIPS. CURRENT LABS INCLUDE WBC 24.6, H/H 7.5/22.6, NA/K 146/4.5, BUN/CREA 87/1.2, LACTIC ACID ON ADMISSION 12.1 AND TODAY 1.2. ON VANCO, ZOSYN AND SOLU MEDROL. CARDIO, ID, PULMO AND GI CONSULTS IN PLACE. DC PLAN PENDING ON PATIENT'S RESPONSE TO TREATMENT. Addendum: 04/29/19 at 1136 by Delia Dubois CM LATE ENTRY FROM 04/28/2019: [facility] CAME, STATING THAT PATIENT WAS ON HOSPICE PRIOR HOWEVER THE PATIENT'S SON REVOKED IT. 1030: CONTACTED PATIENT'S SON FUNMILAYO SORENSEN AT [phone] TO CONFIRM HOSPICE SERVICES PRIOR TO ADMISSION. HE STATED HE SIGNED UP FOR HOSPICE BUT LATER ON DECLINED, PATIENT WAS WITH [facility] PRIOR TO ADMISSION. HE ALSO STATED NOW THAT THE PATIENT'S CONDITION IS DECLINING AND MAY BE NEEDING MORE HELP AT THIS TIME, HE MIGHT CONSIDER HOSPICE HOWEVER HE NEEDS TO SPEAK TO [facility]'S PATCH SETTER ALEX FIRST BEFORE DECIDING. CONTACTED [facility] AT [phone], ABLE TO SPEAK TO YANCI VILLEGAS. SHE CONFIRMED THAT THE PATIENT IS UNDER THEIR SERVICES PRIOR TO ADMISSION AND PATIENT HAD BEEN TO THE HOSPITAL TOO ON APR 07, 2019. SHE ALSO CONFIRMED THAT MALENA IS THE NURSE SEEING THE PATIENT. I INFORMED HER THAT THE PATIENT'S SON IS REQUESTING FOR MALENA TO CALL HIM. SHE STATED SHE WILL HAVE MALENA CONTACT HIM. Addendum: 05/04/19 at 1604 by Delia Dubois CM 4030: RECEIVED AN ORDER FOR SNF EVAL FOR PT. CONTACTED PATIENT'S SON FUNMILAYO SORENSEN AT [phone] TO DISCUSS DC PLANNING. PATIENT'S SON REFUSED SNF PLACEMENT AND WANTS THE PATIENT BACK HOME. HE STATED THAT "IT WILL AFFECT THEIR FINANCIAL STATUS AT HOME IF PATIENT WILL GO TO A SNF. HE ASKED, "IF WITH HOSPICE ARE THEY ABLE TO PROVIDE HOSPITAL BED, SHOWER CHAIR AND HELP AT HOME? BECAUSE THAT IS WHAT WE NEED." I TOLD HIM THAT I CAN SET UP A MEETING WITH A HOSPICE REP SO HE CAN GET MORE INFORMATION REGARDING THEIR SERVICES. 1401: MET WITH THE PATIENT'S SON FUNMILAYO AND HIS SISTER TOGETHER WITH DR. HUTTON TO DISCUSS DISCHARGE PLANNING. ALL QUESTIONS AND CONCERNS ANSWERED. I INFORMED THEM THAT I WILL SET UP A MEETING WITH HOSPICE REP. Addendum: 05/06/19 at 1547 by Mya Morrison CM DC PLANNING: CALLED [facility] SPOKE WITH [facility] BATTERY PLATE ASSEMBLER, STATED THEY ACCEPTED PATIENT AND WILL ARRANGE THE PLACEMENT IF PT HAS TO CONTINUE THE IV ABX PT HAS TO GO TO SNF TO COMPLETE THE ABX. NOTIFIED DR EVANS AND WAITING FROM DR DOUGLAS. YANCI TO FOLLOW Addendum: 05/07/19 at 0912 by Delia Dubois CM CONTACTED [facility] AT [phone] REGARDING DC, SHE STATED SHE SPOKE WITH DR. HUTTON AND SHE IS AWARE OF THE DC. SHE ALSO STATED SHE WILL CALL THE SON FUNMILAYO AND WILL CALL ME BACK. Addendum: 05/07/19 at 1009 by Delia Dubois CM CONTACTED YANCI [facility], MADE HIM AWARE THAT THE PATIENT HAS BEEN SIGNED UP WITH [facility]. Addendum: 05/07/19 at 1332 by Delia Dubois CM PER VIJAY, [facility] WILL BE AT 1600. THEY ARE IN THE PROCESS OF DELIVERING EQUIPMENTS OF THIS MOMENT. Addendum: 05/08/19 at 1109 by Mya Morrison CM DC PLANNING: PATIENT WAS UNABLE TO BE DISCHARGED TO HOSPICE ON 05/06 BECAUSE THE FAMILY INSISTED THAT PT COMPLETE THE IV ABX MEROPENEM HAS TO BE COMPLETED RECOMMENDED BY THE ID DR DOUGLAS, AND HOSPICES NURSE BÁRBARA WAS UN ABLE TO GET SNF TO CONTINUE THE ABX. DC PLAN ON FRIDAY AFTER COMPLETION THE IV ABX, SPOKE WITH BÁRBARA STATED ALL THE EQUIPMENT WAS DELIVERED TO PT'S HOUSE AND PT WILL BE DISCHARGED ON FRIDAY. CM TO FOLLOW
--- NOTE | 2019-04-28 11:35 | NUR ---
WOUND CARE EVALUATION NOTE: REASON FOR EVALUATION: LOW NORA SCALE AND MAD SKIN ASSESSMENT DONE WITH THIS 78Y/O FEMALE PT ADMITTED FROM HOME TO [facility] WITH INITIAL DX . AMS. PAST MEDICAL HX INCLUDES HTN, DM, CHF, ASTHMA AND HLD. PT. ADMITTED WITH MULTIPLE SEVERE MOISTURE ASSOCIATE DERMATITIS. BLE OLD HEALED SCABS/SCARS WITH MULTIPLE SKIN MOLDS. SKIN INTACT. BLE AND DORSAL FEET +2 EDEMA. FUNGAL NAILS X 10 TOES. PT. INCONTINENT OF BOWEL AND F/C LEAKAGE NOTICE. PRIMARY RN AT BEDSIDE AND NOTIFIED OF LEAKAGE. POC DISCUSSED WITH PRIMARY RN. INTEGUMENTARY: -BLE DRY WITH OLD HEALED SCARS/DRY SCABS/SKIN MOLDS -SEVERE MOISTURE ASSOCIATED DERMATITIS TO SACRALCOCCYX, R/L BUTTOCKS, R/L POSTERIOR THIGHS MULTIPLE SKIN EROSIONS WITH DENUDED SKIN FURTHER DAMAGE INDICATED. RECOMMENDATIONS: -CHECK AND REPLACE F/C IF FURTHER LEAKAGE NOTICE -APPLY HYDRAGUARD TO BLE AND FEET BID AND DORIE -CLEANSE SACRALCOCCYX, R/L BUTTOCKS, R/L POSTERIOR THIGHS WITH MILD SOAP AND WATER, PAT DRY, APPLY Z GUARD BID AND PRN IF SOILING -APPLY HEEL PROTECTORS TO BOTH HEELS AT ALL TIMES PREVENT FROM FRICTION -OFFLOAD BILATERAL HEELS BY PLACING PILLOWS UNDER CALVES UNLESS OTHERWISE CONTRAINDICATED -PRESSURE REDISTRIBUTION SURFACE THERAPY -TURN AND REPOSITION Q2H, OFFLOAD SACRALCOCCYX AND RIGHT HEEL -CONTINUE TO FOLLOW RD RECOMMENDATIONS ALL ABOVE RECOMMENDATIONS DISCUSSED WITH PRIMARY RN. WILL FOLLOW UP PT Q7-10 DAYS. PLEASE CONTACT WOUND CARE NURSE FOR ANY QUESTION AND CHANGE OF WOUND CONDITION.
--- NOTE | 2019-04-28 12:00 | NUR ---
WOUND NURSE CAME IN, WOUND CARE DONE. PERSONAL CARE DONE BY THE WAY.
--- NOTE | 2019-04-28 13:30 | NUR ---
2D ECH DONE BEDSIDE.
[2019-04-28] MEDS ORDERED: FUROSEMIDE 20 MG/2 ML VIAL IVP SCH (14:00)
[2019-04-28] MEDS: methylPREDNISolone SS 40 MG/ML VIAL IVP SCH (14:14)
[2019-04-28] MEDS: VANCOMYCIN 1,000 MG in NACL 0.9% 250 ML IV SCH (16:00)
--- NOTE | 2019-04-28 17:36 | NUR ---
CONTINUED TO MONITOR PT ONVENT WITH SETTINGS CHARTED BREATH SOUNDS PRESENT BILAT DIMINISHED CLEAR SXN PT WITH MIN TOMOD AMT OFF WHITE SECS AMBU BAG AT BEDSIDE VENT PLUGGED INTO RED OUT LET ETT SECURE
[2019-04-28] MEDS: INSULIN LANTUS 100 UNITS/ML 10 ML VIAL SUBQ SCH (18:56)
--- NOTE | 2019-04-28 19:20 | NUR ---
REPORT RECEIVED FROM AM NURSE AT BEDSIDE. PT IN STABLE CONDITION. AAOX0. PT ON LIGHT SEDATION AT RASS-2. NO COMPLAINTS OF PAIN. FLACC 0. NO SOB ON ETT TO VENT. VENT SETTINGS FIO2@30%, VT 450, RR 16, AND PEEP 5. AFEBRILE@98.7. PT HAS MELTON. PT HAS RIGHT NARE NG TUBE RUNNING TUBE FEEDING VITAL AF 40ML/HR WITH 95ML H20 FLUSH Q4H. GOAL IS 60ML/HR. PT IS ON PRECAUTIONARY C DIFF PRECAUTION. IV SITE L AC 20G RUNNING NS@50ML/HR PATENT AND INTACT. L IJ TRIPLE LUMEN RUNNING FENTANYL@0.5MCG/KG/HR, VERSED@2ML/HR, LEVOPHED@10MCG/MIN PATENT AND INTACT. SKIN WARM, DRY, AND NOT INTACT DUE TO SACRAL WOUND STAGE 2 AND LEFT SCHILLING SCABBING. BED LOCKED IN LOW POSITION. SAFETY PRECAUTION IN PLACE. ALL NEEDS MET AT THIS TIME. Addendum: 04/28/19 at 2019 by Chun Bowling RN EDEMA TO UPPER EXTREMITIES +1. Addendum: 04/28/19 at 2027 by Chun Bowling RN PT HAS BILATERAL SOFT WRIST RESTRAINTS.
--- NOTE | 2019-04-28 19:44 | NUR ---
RECEIVED INTUBATED PT WITH ETT SIZE 7.0 SECURED WITH ANCHOR-FAST AT 23CM @ THE TEETH. PT IS ON VENT SETTINGS AC 16, 450, PEEP 5, FiO2 30%. VENT PLUGGED IN RED OUTLET, ALARMS SET AND AUDIBLE, BVM AT BEDSIDE, AND HOB > 30. PT IS IN NO APPARENT RESPIRATORY DISTRESS AT THIS TIME: RR 19, HR 96, SPO2 97%, AND CLEAR BREATH SOUNDS ON THE UPPER LOBES AND COARSE BREATH SOUNDS ON THE LOWER BASES. SUCTION SMALL AMOUNT OF CLEAR WHITE THICK SECRETIONS FROM ETT. HHN TX GIVEN ORDERED WITH NO ADVERSE REACTIONS. WILL CONTINUE TO MONITOR PT.
[2019-04-28] MEDS: FUROSEMIDE 20 MG/2 ML VIAL IVP SCH (21:04)
--- NOTE | 2019-04-28 21:04 | NUR ---
SHANI BRENNAN AND ROBINSON. LASIX GIVEN IVP. BS 191. 2 UNITS OF HUMALOG GIVEN. PT TOLERATED WELL. Addendum: 04/28/19 at 2126 by Chun Bowling RN RESIDUAL OF 0ML.
--- NOTE | 2019-04-28 21:15 | NUR ---
0 RESIDUAL OF FEEDING. FEEDING INCREASED TO 50ML/HR.
[2019-04-28] MEDS: fentaNYL 1 MG in NACL 0.9% 80 ML IV PRN (23:00)
--- NOTE | 2019-04-28 23:00 | NUR ---
NEW BAG FENTANYL HUNG. PREVIOUS BAG EMPTY. 0ML WASTE.
[2019-04-29] VITALS (104 sets, daily range): BP systolic 92–137; BP diastolic 51–87
[2019-04-29] MEDS: NOREPINEPHRINE 16 MG in DEXTROSE 5% 250 ML IV PRN (00:27)
--- NOTE | 2019-04-29 00:27 | NUR ---
NEW BAG LEVOPHED HUNG AND RUNNING FOR CONTINUOUS DRIP.
--- NOTE | 2019-04-29 01:13 | NUR ---
ZGUARD AND HYDRAGUARD APPLIED. SOLUMEDROL GIVEN IVP. PT TOLERATED WELL.
[2019-04-29] MEDS: HYDRAGUARD CREAM TP SCH ×2 (01:14→12:38)
[2019-04-29] MEDS: Z-GUARD PASTE TP SCH ×2 (01:15→12:39)
[2019-04-29] MEDS: NACL 0.9% 1,000 ML IV SCH (01:15)
[2019-04-29] MEDS: methylPREDNISolone SS 40 MG/ML VIAL IVP SCH (01:17)
--- NOTE | 2019-04-29 02:30 | NUR ---
LEVOPHED DECREASED TO 7.49ML/HR OR 8MCG/MIN. PT BP STABILIZING.
--- NOTE | 2019-04-29 03:40 | NUR ---
FEEDING CHANGED. Addendum: 04/29/19 at 0607 by Chun Bowling RN FEEDING INCREASED TO 60ML/HR.
--- NOTE | 2019-04-29 04:00 | NUR ---
VAP ORAL CARE DONE. MELTON CARE DONE.
[2019-04-29] MEDS: PIPERACILLIN/TAZOBACTAM 2.25 GM in DEXTROSE 5% 50 ML IV SCH ×3 (04:13→20:09)
--- NOTE | 2019-04-29 04:13 | NUR ---
SHANI FLANNERY. PT TOLERATING WELL. Addendum: 04/29/19 at 0605 by Chun Bowling RN RESIDUAL 40ML. PT TOLERATING FEEDING WELL.
--- NOTE | 2019-04-29 05:45 | NUR ---
CVP ZEROED AND CHECKED. WORKING PROPERLY. Addendum: 04/29/19 at 0604 by Chun Bowling RN LEVOPHED DECREASED TO 6MCG/MIN DUE TO STABILIZING BP.
[2019-04-29 06:07] LABS: HEMATOCRIT 21.6 % (36-48); HEMOGLOBIN 7.1 g/dL (12.0-16.0); MEAN CORPUSCULAR HEMOGLOBIN 30 pg (27-31); MEAN CORPUSCULAR HGB CONC 33 g/dL (33-37); MEAN CORPUSCULAR VOLUME 91.2 fL (80-94); PLATELET COUNT (AUTO) 318 K/uL (140-450); RED BLOOD CELL COUNT(AUTO) 2.37 MIL/uL (4.20-5.40); RED CELL DISTRIBUTION WIDTH 18.2 % (11.6-13.7)
[2019-04-29] MEDS: BLOOD GLUCOSE MONITORING 1 DEV DEV FS SCH ×4 (06:22→20:16)
[2019-04-29] MEDS: INSULIN LISPRO SLIDING SCALE 100 UNITS/ML VIAL SUBQ PRN ×4 (06:30→20:16)
--- NOTE | 2019-04-29 06:30 | NUR ---
BS 258. 6 UNITS OF HUMALOG GIVEN. PT TOLERATED WELL.
[2019-04-29 06:40] LABS: LYMPHOCYTES % (MANUAL) 5 % (20-46); MONOCYTES % (MANUAL) 5 % (5-12); WHITE BLOOD COUNT (AUTO) 29.1 K/uL (4.8-10.8)
--- NOTE | 2019-04-29 06:40 | NUR ---
CRITICAL LAB VALUE WBC 29.1. NOTIFIED. NO NEW ORDERS.
[2019-04-29 07:03] LABS: ANION GAP 12.5 (8-16); CARBON DIOXIDE 27.2 mmol/L (21-32); CHLORIDE 115 mmol/L (98-107); CREATININE 1.2 mg/dL (0.6-1.3); GLUCOSE 277 mg/dL (74-106); POTASSIUM 3.7 mmol/L (3.5-5.1); SODIUM SERUM 151 mmol/L (136-145)
[2019-04-29 07:11] LABS: MAGNESIUM 1.9 mg/dL (1.8-2.4)
--- NOTE | 2019-04-29 07:15 | NUR ---
REPORT GIVEN TO AM NURSE AT BEDSIDE. PT IN STABLE CONDITION.
[2019-04-29 07:18] LABS: UREA NITROGEN, BLOOD 66 mg/dL (7-18)
--- NOTE | 2019-04-29 07:20 | NUR ---
RECEIVED REPORT FROM PROFESSOR OF FOREST PLANNING NURSE AT BEDSIDE. PT IS ETT TO VENT, SEDATED, RASS-2. RESPOND TO LIGHT SHAKING AND LIGHT PAIN. FLACC 0. NO SOB. VENT SETTINGS FIO2 25%, VT 450, RR 16, AND PEEP 5. TEMP 99.0F. NG TUBE TO RIGHT NARE RUNNING GLUCERNA 1.2 AT 60ML/HR WITH 95ML H20 FLUSH Q4H. PT HAS GENERAL PITTING EDEMA +1 ON BLE/BUE. IV SITE L AC 20G RUNNING NS AT 50ML/HR, ASYMPTOMATIC, GOOD BLOOD RETURN, PATENT AND INTACT. L IJ TRIPLE LUMEN RUNNING FENTANYL 0.5MCG/KG/HR, VERSED AT 2ML/HR, LEVOPHED 6MCG/MIN, ASYMPTOMATIC, PATENT AND INTACT. SKIN WARM, DRY, AND NOT INTACT DUE TO BUTTOCK INCONTINENT DERMATITIS AND LEFT SCHILLING SCABBING. MELTON CATH IN PLACE DRAINING CLEAR DARK YELLOW URINE WITH SEDIMENTS. PT ON SOFT WRIST RESTRAINTS, NO S/S OF INJURY. BED LOCKED IN LOWEST POSITION. SAFETY AND ASPIRATION PRECAUTION IN PLACE. Addendum: 04/29/19 at 1736 by Jean-Pierre Keller RN DRY WEIGHT 80KG
[2019-04-29] MEDS: ALBUTEROL SULFATE/IPRATROPIU 3 ML SOL IH SCH ×3 (07:26→19:25)
--- NOTE | 2019-04-29 07:38 | NUR ---
RRECIVED T ON VENT WITH SETTINGS CHARTED BREATH SOUNDS PRESENT BILAT DIMINISHED SXN PT WITH MIN AMT REDDISH SECS ETT SECURE AMBU BAG AT BEDSIDE VENT PLUGGED INTO RED OUTLET WILL CONTINUE TO MONITOR PT ON VENT
--- NOTE | 2019-04-29 07:50 | NUR ---
PT WAS REPOSITIONED. PT HAS DRIED BLOOD ON LIPS. ORAL CARE DONE, MELTON CARE DONE. PT TOLERATED WELL.
[2019-04-29] MEDS ORDERED: FERROUS SULFATE 325 MG TABEC PO SCH (08:00)
[2019-04-29] MEDS ORDERED: DEXT 5% / NACL 0.45% 1,000 ML IV SCH (08:45)
[2019-04-29] MEDS ORDERED: INSULIN LANTUS 100 UNITS/ML 10 ML VIAL SUBQ SCH (09:00)
[2019-04-29] MEDS: ASCORBIC ACID 500 MG TAB PO SCH (09:16)
[2019-04-29] MEDS: FUROSEMIDE 20 MG/2 ML VIAL IVP SCH ×2 (09:16→20:09)
[2019-04-29] MEDS: LACTULOSE 20 GM/30 ML UDC PO SCH (09:16)
[2019-04-29] MEDS: LACTOBACILLUS RHAMNOSUS GG 1 EACH CAP PO SCH (09:16)
[2019-04-29] MEDS: PANTOPRAZOLE 40 MG INJ VIAL IVP SCH ×2 (09:16→20:08)
[2019-04-29] MEDS: CALCIUM CARB/VIT-D 500 MG/200 IU 1 TAB NG SCH (09:19)
[2019-04-29] MEDS: INSULIN LANTUS 100 UNITS/ML 10 ML VIAL SUBQ SCH (09:21)
[2019-04-29] MEDS ORDERED: SODIUM FERRIC GLUCONATE 125 MG in NACL 0.9% 100 ML IV SCH (10:00)
--- NOTE | 2019-04-29 10:00 | NUR ---
PT WAS REPOSITIONED, CHG WIPE DONE, Z GUARD APPLIED TO BUTTOCKS, PICTURE TAKEN, FOAM DRESSING PLACED FOR PREVENTIVE MEASURES.
[2019-04-29] MEDS: MIDAZOLAM MDV 50 MG in NACL 0.9% 40 ML IV PRN (10:07)
--- NOTE | 2019-04-29 10:45 | NUR ---
pt [paced on cpap peep +5 ps [address] rivera ordered will continue to monitor
[2019-04-29] MEDS: NACL 0.45% 1,000 ML IV SCH (11:03)
--- NOTE | 2019-04-29 12:00 | NUR ---
PT WAS REPOSITIONED.
[2019-04-29] MEDS: MIDODRINE 5 MG TAB PO SCH ×2 (12:41→19:36)
--- NOTE | 2019-04-29 13:00 | NUR ---
PT DOING CPAP TRIAL, DECREASED SEDATION VERSED TO 1MG/HR
--- NOTE | 2019-04-29 13:20 | NUR ---
PT'S SON FUNMILAYO CAME. DR QUINTERO NOTIFIED. DR QUINTERO CAME AND DISCUSSED POC WITH FUNMILAYO, EXPLAINED EGD. JAKIJO-ANN HAVING NO FURTHER QUESTION REGARDING EGD AT THIS TIME, CONSENT SIGNED.
--- NOTE | 2019-04-29 14:00 | NUR ---
ETT SUCTION DONE, MINIMAL WHITE SECRETION, PT WAS REPOSITIONED.
--- NOTE | 2019-04-29 15:25 | NUR ---
NOTIFIED RT PT STAYING AT 88% O2 SAT AND VENT ALARMING RR LOW 9/MIN. RT WILL CAME AND CHANGE CPAP TO ACVC MODE.
--- NOTE | 2019-04-29 16:00 | NUR ---
PT WAS REPOSITIONED.
[2019-04-29] MEDS: VANCOMYCIN 1,000 MG in NACL 0.9% 250 ML IV SCH (16:31)
--- NOTE | 2019-04-29 17:15 | NUR ---
CONTINUED TO MONITOR PT ON VENT WITH SETTINGS CHARTED BREATH SOUNDS PRESENT BILAT DIMINISHED SXN PT WITH MIN AMT REDDISH SECS ETT SECURE AMBU BAG AT BEDSIDE VENT PLUGGED INTO RED OUTLET
[2019-04-29] MEDS: VANCOMYCIN 1,250 MG in DEXTROSE 5% 250 ML IV SCH (17:57)
--- NOTE | 2019-04-29 19:20 | NUR ---
REPORT RECEIVED FROM AM NURSE AT BEDSIDE. PT IN STABLE CONDITION. AAOX0-1. PT IS SEDATED ON VERSED AND FENTANYL. NO COMPLAINTS OF PAIN. FLACC 0. NO SOB ET TUBE TO VENT. VENT SETTINGS ACVC FIO2@25%, VT 450, RR 16, PEEP 5. AFEBRILE. PT HAS MELTON. PT HAS NG TUBE RIGHT NARES WITH TUBE FEEDING@60ML/HR WITH 100ML H20 FLUSH Q4H. PT IS ON BEDREST. PT HAS CVP HEMODYNAMIC MONITORING. READS WELL AND ZEROED. IV SITE L AC 20G RUNNING FENTANYL@0.5MCG/KG/MN AND VERSED@1ML/HR Addendum: 04/29/19 at 2116 by Chun Bowling RN RUNNING FENTANYL@0.5MCG/KG/HR AND VERSED@1ML/HR PATENT AND INTACT. L IJ TRIPLE LUMEN RUNNING 1/2NS@20ML/HR, LEVOPHED@2MCG/MIN, AND THE CVP PRESSURE GAUGE PATENT AND INTACT. SKIN WARM, DRY, AND NOT INTACT DUE TO STAGE 2 SACRAL BUTTOCK AND SACRAL WOUND. BED LOCKED IN LOW POSITION. CALL GUERRERO WITHIN REACH. SAFETY PRECAUTION IN PLACE. ALL NEEDS MET AT THIS TIME. Addendum: 04/29/19 at 2155 by Chun Bowling RN DRY WEIGHT 80KG.
--- NOTE | 2019-04-29 19:36 | NUR ---
PROATAMINE GIVEN THROUGH GTUBE. PT TOLERATED WELL.
--- NOTE | 2019-04-29 20:00 | NUR ---
ORAL CARE GIVEN.
[2019-04-29] MEDS: FERROUS SULFATE 300 MG/5 ML UDC GT SCH (20:09)
--- NOTE | 2019-04-29 20:09 | NUR ---
SHANI HUNG AND RUNNING. PROTONIX AND LASIX GIVEN IVP. FERROUS SULFATE GIVEN THROUGH GTUBE. BS 181. 2 UNITS OF HUMALOG GIVEN. PT TOLERATED WELL. RESIDUAL OF 5ML.
--- NOTE | 2019-04-29 22:15 | NUR ---
PT CURRENTLY SEDATED RASS-2. NO S/S OF DISTRESS NOTED. PT IS COMFORTABLE.
[2019-04-30] VITALS (106 sets, daily range): BP systolic 92–133; BP diastolic 47–69
--- NOTE | 2019-04-30 | NUR ---
ORAL CARE GIVEN.
[2019-04-30] MEDS: Z-GUARD PASTE TP SCH ×2 (00:33→12:33)
[2019-04-30] MEDS: HYDRAGUARD CREAM TP SCH ×2 (00:33→12:32)
--- NOTE | 2019-04-30 00:33 | NUR ---
ZGUARD AND HYDRAGUARD APPLIED.
[2019-04-30] MEDS: fentaNYL 1 MG in NACL 0.9% 80 ML IV PRN (02:19)
--- NOTE | 2019-04-30 02:20 | NUR ---
FENTANYL NEW BAG HUNG. 0ML WASTE.
--- NOTE | 2019-04-30 04:00 | NUR ---
ORAL CARE GIVEN. PATIENT LINENS CHANGED. MELTON CARE DONE.
--- NOTE | 2019-04-30 05:30 | NUR ---
PT MOVED FROM ICU BED 3 TO ICU BED 7.
[2019-04-30] MEDS: PIPERACILLIN/TAZOBACTAM 2.25 GM in DEXTROSE 5% 50 ML IV SCH ×3 (05:48→20:44)
--- NOTE | 2019-04-30 05:48 | NUR ---
SHANI HUNG AND RUNNING.
[2019-04-30] MEDS ORDERED: LANSOPRAZOLE 30 MG CAPDR PO SCH (06:30)
[2019-04-30 06:56] LABS: MAGNESIUM 1.8 mg/dL (1.8-2.4); PHOSPHORUS 2.7 mg/dL (2.5-4.9)
[2019-04-30] MEDS: MIDODRINE 5 MG TAB PO SCH ×3 (07:00→18:40)
[2019-04-30] MEDS: BLOOD GLUCOSE MONITORING 1 DEV DEV FS SCH ×4 (07:03→21:00)
--- NOTE | 2019-04-30 07:03 | NUR ---
BS 147. NO INSULIN COVERAGE NEEDED.
[2019-04-30 07:05] LABS: ANION GAP 11.9 (8-16); CARBON DIOXIDE 26.9 mmol/L (21-32); CHLORIDE 116 mmol/L (98-107); CREATININE 1.2 mg/dL (0.6-1.3); GLUCOSE 145 mg/dL (74-106); POTASSIUM 3.8 mmol/L (3.5-5.1); SODIUM SERUM 151 mmol/L (136-145); UREA NITROGEN, BLOOD 56 mg/dL (7-18)
--- NOTE | 2019-04-30 07:11 | NUR ---
REPORT GIVEN TO AM NURSE AT BEDSIDE. PT IN STABLE CONDITION.
--- NOTE | 2019-04-30 07:20 | NUR ---
RECEIVED REPORT FROM HIGH SPEED OPERATOR NURSE AT BEDSIDE. PT IS ETT TO VENT, SEDATED, RASS-2. RESPOND TO LIGHT SHAKING AND LIGHT PAIN. FLACC 0. NO SOB. VENT SETTINGS FIO2 25%, VT 450, RR 16, AND PEEP 5. AFEBRILE. NG TUBE TO RIGHT NARE RUNNING GLUCERNA 1.2 AT 60ML/HR WITH 95ML H20 FLUSH Q4H. PT HAS GENERAL PITTING EDEMA +1 ON BLE/BUE. IV SITE L AC 20G RUNNING FENTANYL 0.5MCG/KG/HR, VERSED AT 2ML/HR ASYMPTOMATIC, STILL HAS GOOD BLOOD RETURN, PATENT AND INTACT. L IJ TRIPLE LUMEN, CVP 11, RUNNING LEVOPHED 2MCG/MIN, 1/2 NS AT 50ML/HR, ASYMPTOMATIC, PATENT AND INTACT. SKIN WARM, DRY, AND NOT INTACT DUE TO BUTTOCK INCONTINENT DERMATITIS AND BILATERAL SCHILLING SCABS. MELTON CATH IN PLACE DRAINING CLEAR LIGHT MARY URINE WITH SEDIMENTS. PT ON SOFT WRIST RESTRAINTS, NO S/S OF INJURY. BED LOCKED IN LOWEST POSITION. SAFETY AND ASPIRATION PRECAUTION IN PLACE. DRY WEIGHT 80KG
[2019-04-30 07:24] LABS: HEMATOCRIT 21.5 % (36-48); MEAN CORPUSCULAR HEMOGLOBIN 30 pg (27-31); MEAN CORPUSCULAR HGB CONC 31 g/dL (33-37); MEAN CORPUSCULAR VOLUME 96.8 fL (80-94); PLATELET COUNT (AUTO) 237 K/uL (140-450); RED BLOOD CELL COUNT(AUTO) 2.22 MIL/uL (4.20-5.40); RED CELL DISTRIBUTION WIDTH 19.4 % (11.6-13.7)
[2019-04-30] MEDS: ALBUTEROL SULFATE/IPRATROPIU 3 ML SOL IH SCH ×3 (07:30→18:40)
[2019-04-30] MEDS ORDERED: LACTULOSE 20 GM/30 ML UDC PO SCH (09:00)
[2019-04-30] MEDS: FUROSEMIDE 20 MG/2 ML VIAL IVP SCH ×2 (09:00→21:00)
[2019-04-30] MEDS: PANTOPRAZOLE 40 MG INJ VIAL IVP SCH (09:10)
[2019-04-30] MEDS: CALCIUM CARB/VIT-D 500 MG/200 IU 1 TAB NG SCH (09:11)
[2019-04-30] MEDS: LACTOBACILLUS RHAMNOSUS GG 1 EACH CAP PO SCH (09:11)
[2019-04-30] MEDS: SODIUM FERRIC GLUCONATE 125 MG in NACL 0.9% 100 ML IV SCH (09:11)
[2019-04-30] MEDS: FERROUS SULFATE 300 MG/5 ML UDC GT SCH ×2 (09:11→20:45)
[2019-04-30] MEDS: ASCORBIC ACID 500 MG TAB PO SCH (09:12)
[2019-04-30] MEDS: INSULIN LANTUS 100 UNITS/ML 10 ML VIAL SUBQ SCH (09:18)
[2019-04-30 09:25] LABS: WHITE BLOOD COUNT (AUTO) 27.3 K/uL (4.8-10.8)
[2019-04-30 09:26] LABS: HEMOGLOBIN 6.7 g/dL (12.0-16.0)
[2019-04-30 09:27] LABS: LYMPHOCYTES % (MANUAL) 4 % (20-46); MONOCYTES % (MANUAL) 3 % (5-12)
[2019-04-30 10:08] LABS: FOLIC ACID 11.6 ng/mL (>3.0)
[2019-04-30] MEDS: NACL 0.45% 1,000 ML IV SCH ×2 (10:10→18:04)
[2019-04-30] MEDS: FLUCONAZOLE 200 MG/NS PREMIX 100 ML IV SCH (10:23)
--- NOTE | 2019-04-30 11:36 | NUR ---
PT PLACED ON SBT CPAP 5 PS 10 FIO2 25%. PT ABLE TO OPEN EYES FOLLOW SIMPLE COMMANDS. NURSE AWARE OF PT STATUS. WILL CONTINUE TO MONITOR. VENT ALARMS AND BACKUP MODE OF VENTILATION SET.
[2019-04-30] MEDS: INSULIN LISPRO SLIDING SCALE 100 UNITS/ML VIAL SUBQ PRN ×3 (12:40→20:44)
[2019-04-30] MEDS ORDERED: ACETAMINOPHEN 325 MG TAB PO SCH (12:54)
--- NOTE | 2019-04-30 13:30 | NUR ---
BLOOD TRANSFUSION STARTED, RUNNING AT 120ML/HR.
--- NOTE | 2019-04-30 13:57 | NUR ---
04/30/19 FOLLOW UP COMPLETED PLEASE REFER TO NUTRITION ASSESSMENT UNDER CARE ACTIVITY FOR ESTIMATED NUTRITIONAL NEEDS. 1. CONTINUE GLUCERNA 1.2 @ 60 ML/HR. START RATE @ 10 ML/HR AND ADVANCE TOLERATED. -THIS PROVIDES 1440 ML IN FLUIDS, 1728 KCALS, AND 86 GM OF PROTEIN. THIS IS MEETING >100% OF PTS CALORIC NEEDS AND >100% OF PTS PROTEIN NEEDS. 2. FREE WATER FLUSH: [address] TO FOLLOW-UP 2-3 DAYS, HIGH RISK CON TOM RD
--- NOTE | 2019-04-30 14:14 | NUR ---
PT REMAINS ON SBT CPAP 5 PS 10 TOLERATING WELL. WILL CONTINUE TO MONITOR.
--- NOTE | 2019-04-30 15:30 | NUR ---
BLOOD TRANSFUSION FINISHED. DR HUTTON AWARE.
--- NOTE | 2019-04-30 15:59 | NUR ---
PT TOLERATED SBT NURSE AWARE. PT RETURNED TO AC/VC WITH DOCUMENTED SETTINGS. WILL CONTINUE TO MONITOR.
[2019-04-30] MEDS: LACTULOSE 20 GM/30 ML UDC PO SCH (16:33)
--- NOTE | 2019-04-30 17:51 | NUR ---
PT REMAINS ON DOCUMENTED VENT SETTINGS. ETT IS SECURE WITH A PATENT AIRWAY. PT IS SEDATED AT THIS TIME NOT IN ANY DISTRESS.
[2019-04-30] MEDS: VANCOMYCIN 1,250 MG in DEXTROSE 5% 250 ML IV SCH (18:03)
[2019-04-30 18:52] LABS: BASOPHILS # (AUTO) 0.1 K/uL (0.00-0.22); BASOPHILS % (AUTO) 0.4 % (0.0-2.0); EOSINOPHILS % (AUTO) 0.2 % (0.0-4.0); HEMATOCRIT 24.6 % (36-48); HEMOGLOBIN 7.8 g/dL (12.0-16.0); LYMPHOCYTES # (AUTO) 1.1 K/uL (2.5-16.5); LYMPHOCYTES % (AUTO) 5.9 % (20.5-51.1); MEAN CORPUSCULAR HEMOGLOBIN 30 pg (27-31); MEAN CORPUSCULAR HGB CONC 32 g/dL (33-37); MEAN CORPUSCULAR VOLUME 95.5 fL (80-94); MONOCYTES # (AUTO) 1.5 K/uL (0.8-1.0); NEUTROPHILS # (AUTO) 15.7 K/uL (1.8-7.7); NEUTROPHILS % (AUTO) 85.5 % (42.2-75.2); PLATELET COUNT (AUTO) 201 K/uL (140-450); RED BLOOD CELL COUNT(AUTO) 2.57 MIL/uL (4.20-5.40); WHITE BLOOD COUNT (AUTO) 18.4 K/uL (4.8-10.8)
[2019-04-30 19:06] LABS: ANION GAP 9.1 (8-16); CARBON DIOXIDE 29.7 mmol/L (21-32); CHLORIDE 116 mmol/L (98-107); CREATININE 1.1 mg/dL (0.6-1.3); GLUCOSE 181 mg/dL (74-106); POTASSIUM 3.8 mmol/L (3.5-5.1); SODIUM SERUM 151 mmol/L (136-145); UREA NITROGEN, BLOOD 50 mg/dL (7-18)
--- NOTE | 2019-04-30 19:15 | NUR ---
REPORT RECEIVED AM SHIFT RN. PT SEDATED RASS -2. ETT TO VENT. ON ACVC MODE, FIO2 25%, TV 450, RATE 16, PEEP 5. LUNG SOUNDS RHONCHI. HEART SOUNDS HEARD S1 AND S2. LIJ CENTRAL LINE INFUSING VERSED AND FENTANYL. LAC 20 GAUGE, INTACT AND PATENT. INFUSING NS 80 ML/HR. CVP MONITORING IN PLACE, LINE ZEROED. R NARE NGT TO FEEDING. 0 RESIDUALS NOTED. ACTIVE BOWEL SOUNDS. WOUNDS NOTED. SEE WOUND ASSESSMENT. DRY WEIGHT 80 KG. SKIN WARM AND DRY, GENERALIZED EDEMA NOTED, BUE, 1+ PITTING. MELTON CATHETER IN PLACE. HOB 30 DEGREES. BED LOCKED IN LOWEST POSITION. WILL CONTINUE TO MONITOR. Addendum: 04/30/19 at 2133 by Gaurav Duong RN PT ON BILAT SOFT WRIST RESTRAINTS.
--- NOTE | 2019-04-30 20:45 | NUR ---
BLOOD SUGAR 165. 2 UNITS OF HUMALOG GIVEN. MIKA AGUILARSYN IVPB.
--- NOTE | 2019-04-30 22:12 | NUR ---
PT RASS -2, HAS EYES CLOSED. RESTING IN BED. RESPIRATIONS EVEN AND UNLABORED. CHEST RISE IS SYMMETRICAL. HOB 30 DEGREES. BED LOCKED IN LOWEST POSITION. WILL CONTINUE TO MONITOR.
[2019-05-01] VITALS (63 sets, daily range): BP systolic 90–145; BP diastolic 42–82
--- NOTE | 2019-05-01 00:17 | NUR ---
ORAL CARE PROVIDED
[2019-05-01] MEDS: Z-GUARD PASTE TP SCH ×2 (00:55→12:46)
[2019-05-01] MEDS: HYDRAGUARD CREAM TP SCH ×2 (00:55→12:46)
--- NOTE | 2019-05-01 02:12 | NUR ---
PT SEDATED OM VERSED AND FENTANYL, RASS -2, HAS EYES CLOSED. RESTING IN BED. RESPIRATIONS EVEN AND UNLABORED. CHEST RISE IS SYMMETRICAL. HOB 30 DEGREES. BED LOCKED IN LOWEST POSITION. WILL CONTINUE TO MONITOR.
--- NOTE | 2019-05-01 04:30 | NUR ---
PT REPOSITIONED. RUFUS CARE PROVIDED. RASS -2, HAS EYES CLOSED. RESPIRATIONS EVEN AND UNLABORED. CHEST RISE IS SYMMETRICAL. WILL CONTINUE TO MONITOR.
[2019-05-01] MEDS: PIPERACILLIN/TAZOBACTAM 2.25 GM in DEXTROSE 5% 50 ML IV SCH ×3 (04:50→21:03)
--- NOTE | 2019-05-01 06:15 | NUR ---
ORAL CARE PROVIDED. BLEEDING IN MOUTH NOTED. RESIDENT MADE AWARE.
[2019-05-01 06:56] LABS: ANION GAP 8.2 (8-16); CARBON DIOXIDE 29.8 mmol/L (21-32); CHLORIDE 115 mmol/L (98-107); CREATININE 0.9 mg/dL (0.6-1.3); GLUCOSE 186 mg/dL (74-106); SODIUM SERUM 149 mmol/L (136-145); UREA NITROGEN, BLOOD 43 mg/dL (7-18)
[2019-05-01 07:00] LABS: BASOPHILS # (AUTO) 0.1 K/uL (0.00-0.22); BASOPHILS % (AUTO) 0.5 % (0.0-2.0); EOSINOPHILS # (AUTO) 0.1 K/uL (0-0.4); EOSINOPHILS % (AUTO) 0.6 % (0.0-4.0); HEMATOCRIT 24.6 % (36-48); HEMOGLOBIN 7.8 g/dL (12.0-16.0); LYMPHOCYTES # (AUTO) 1.2 K/uL (2.5-16.5); LYMPHOCYTES % (AUTO) 6.4 % (20.5-51.1); MEAN CORPUSCULAR HEMOGLOBIN 31 pg (27-31); MEAN CORPUSCULAR HGB CONC 32 g/dL (33-37); MEAN CORPUSCULAR VOLUME 96.4 fL (80-94); MONOCYTES # (AUTO) 1.4 K/uL (0.8-1.0); NEUTROPHILS # (AUTO) 16.4 K/uL (1.8-7.7); NEUTROPHILS % (AUTO) 85.5 % (42.2-75.2); PLATELET COUNT (AUTO) 190 K/uL (140-450); RED BLOOD CELL COUNT(AUTO) 2.56 MIL/uL (4.20-5.40); RED CELL DISTRIBUTION WIDTH 17.9 % (11.6-13.7); WHITE BLOOD COUNT (AUTO) 19.2 K/uL (4.8-10.8)
[2019-05-01 07:02] LABS: PHOSPHORUS 2.7 mg/dL (2.5-4.9)
--- NOTE | 2019-05-01 07:17 | NUR ---
BEDSIDE REPORT GIVEN TO AM SHIFT RN FOR CONTINUITY OF CARE.
[2019-05-01] MEDS: ALBUTEROL SULFATE/IPRATROPIU 3 ML SOL IH SCH ×3 (07:18→19:17)
--- NOTE | 2019-05-01 07:20 | NUR ---
RECEIVED REPORT FROM MATERIAL HANDLING SUPERVISOR NURSE AT BEDSIDE. PT IS ETT TO VENT, SEDATED, RASS-2. RESPOND TO LIGHT SHAKING AND LIGHT PAIN. FLACC 0. NO SOB. VENT SETTINGS FIO2 25%, VT 450, RR 16, AND PEEP 5. AFEBRILE. NG TUBE TO RIGHT NARE RUNNING GLUCERNA 1.2 AT 60ML/HR WITH 95ML H20 FLUSH Q4H. PT HAS GENERAL PITTING EDEMA +1 ON BLE/BUE. IV SITE L AC 20G RUNNING FENTANYL 0.5MCG/KG/HR, VERSED AT 1ML/HR ASYMPTOMATIC, STILL HAS GOOD BLOOD RETURN, PATENT AND INTACT. L IJ TRIPLE LUMEN, CVP 8, OFF PRESSORS, 1/2 NS AT 80ML/HR, ASYMPTOMATIC, PATENT AND INTACT. SKIN WARM, DRY, AND NOT INTACT DUE TO BUTTOCK AND PERINEAL INCONTINENT DERMATITIS AND BILATERAL SCHILLING SCABS. MELTON CATH IN PLACE DRAINING CLEAR LIGHT MARY URINE WITH SEDIMENTS. PT ON SOFT WRIST RESTRAINTS, NO S/S OF INJURY. BED LOCKED IN LOWEST POSITION. SAFETY AND ASPIRATION PRECAUTION IN PLACE. DRY WEIGHT 80KG
[2019-05-01] MEDS: BLOOD GLUCOSE MONITORING 1 DEV DEV FS SCH ×4 (08:20→21:00)
[2019-05-01 08:32] LABS: HEPATITIS A ANTIBODY IGM Negative (Negative); HEPATITIS B CORE AB TOTAL Negative (Negative); HEPATITIS B SURFACE ANTIBODY Non Reactive (.); HEPATITIS B SURFACE ANTIGEN Negative (Negative)
[2019-05-01] MEDS: FERROUS SULFATE 300 MG/5 ML UDC GT SCH ×2 (08:35→20:56)
[2019-05-01] MEDS: ASCORBIC ACID 500 MG TAB PO SCH (08:35)
[2019-05-01] MEDS: LACTULOSE 20 GM/30 ML UDC PO SCH (08:35)
[2019-05-01] MEDS: MIDODRINE 5 MG TAB PO SCH ×3 (08:35→18:03)
[2019-05-01] MEDS: LACTOBACILLUS RHAMNOSUS GG 1 EACH CAP PO SCH (08:35)
[2019-05-01] MEDS: CALCIUM CARB/VIT-D 500 MG/200 IU 1 TAB NG SCH (08:35)
[2019-05-01] MEDS: FUROSEMIDE 20 MG/2 ML VIAL IVP SCH ×2 (08:36→21:03)
[2019-05-01] MEDS: PANTOPRAZOLE 40 MG INJ VIAL IVP SCH ×2 (08:36→21:04)
[2019-05-01] MEDS: INSULIN LANTUS 100 UNITS/ML 10 ML VIAL SUBQ SCH (08:39)
[2019-05-01] MEDS: INSULIN LISPRO SLIDING SCALE 100 UNITS/ML VIAL SUBQ PRN ×2 (08:40→12:52)
--- NOTE | 2019-05-01 09:00 | NUR ---
SEDATION TURNED OFF, FOR CPAP TRIAL
--- NOTE | 2019-05-01 09:34 | NUR ---
PT PLACED ON SBT CPAP 5 PS 10 FIO2 35%. NURSE MADE AWARE. WILL CONTINUE TO MONITOR.
[2019-05-01] MEDS: SODIUM FERRIC GLUCONATE 125 MG in NACL 0.9% 100 ML IV SCH (10:01)
--- NOTE | 2019-05-01 11:17 | NUR ---
PHYSICIAN PAGED AND GAVE ABG RESULTS AND WEANING PARAMETERS OVER PHONE. PHYSICIAN STATES TO EXTUBATE PT AND CONTINUE TO MONITOR. PHYSICIAN STATES IF NEEDED TO USE HIGH FLOW OR BIPAP. NURSE AWARE.
[2019-05-01] MEDS: FLUCONAZOLE 200 MG/NS PREMIX 100 ML IV SCH (11:35)
--- NOTE | 2019-05-01 11:35 | NUR ---
PT EXTUBATED AND PLACED ON 3L NC. PT NOT IN ANY DISTRESS AT THIS TIME. NURSE AWARE. NO STRIDOR HEARD ON AUSCULTATION. WILL CONTINUE TO MONITOR.
--- NOTE | 2019-05-01 11:45 | NUR ---
MADE DR COOK AWARE PT HAS BEEN EXTUBATED, O2 3L NC, O2 SAT 92%.
[2019-05-01] MEDS: NACL 0.45% 1,000 ML IV SCH (11:52)
--- NOTE | 2019-05-01 15:00 | NUR ---
PT'S FAMILY: SON FUNMILAYO AND DAUGHTER KASIA CAME. PT IS AAOX2. ABLE TO MAKE NEEDS KNOWN.
--- NOTE | 2019-05-01 15:35 | NUR ---
PT'S DAUGHTER TOMAS (KASIA) TOOK HOME PT'S ALL MEDICATIONS AND DC PAPER FROM LAST VISIT.
--- NOTE | 2019-05-01 16:50 | NUR ---
MADE DR COOK AWARE OF THE KUB RESULT.
--- NOTE | 2019-05-01 18:00 | NUR ---
ASKED IF PT KNOWS HER LIVER PROBLEM. PT IS AWARE OF HER LIVER CANCER.
[2019-05-01] MEDS: VANCOMYCIN 1,250 MG in DEXTROSE 5% 250 ML IV SCH (18:03)
[2019-05-01] MEDS ORDERED: SODIUM PHOSPHATE 118 ML ENEM RC SCH (18:05)
--- NOTE | 2019-05-01 19:25 | NUR ---
RECEIVED REPORT FROM DAYSHIFT NURSE AT PATIENTS BEDSIDE. PT AWAKE AND ALERT. OPENS EYES SPONTANEOUSLY, FOLLOWS SIMPLE COMMANDS, SLIGHTLY CONFUSED. ANOx1, PATIENT UNAWARE OF WHERE SHE IS AT, STATES SHE IS "[facility]AR [facility]". PT IS POST-EXTUBATION, ON NASAL CANNULA 3LPM, SATURATIONS 96%. BREATHING IS UNLABORED, NO SIGNS OF DISTRESS OR SHORTNESS OF BREATH. PT DENIES PAIN. LUNG SOUNDS ARE SLIGHTLY RHONCHI AT UPPER LOBES AND DIMINISHED AT BASES. EQUAL CHEST RISE. S1S2, SR TO ST ON MONITOR. LIJ TRIPLE LUMEN IN PLACE. ALL LUMEN PATENT WITH GOOD BLOOD RETURN. ASYMPTOMATIC. INFUSING 1/2 NS @ 80ML/HR. PERIPHERAL IV TO LEFT AC-20G, FLUSHED AND PATENT. SALINE LOCKED. NGT IN PLACE TO R NARE, FEEDING ON HOLD AT THIS TIME FOR REPOSITIONING, DAYSHIFT NURSE JUST ADMINISTERED FLEET ENEMA. ABDOMEN IS LARGE AND WITH OBVIOUS MASSES (HX LIVER CANCER) DENIES PAIN. MELTON CATHETER IN PLACE, WITH YELLOW URINE AND SEDIMENT NOTED. SKIN IS WARM AND DRY BUT EDEMATOUS TO UPPER EXTREMITIES AND LOWER EXTREMITIES, PITTING, 1+. OPEN WOUNDS TO BUTTOCKS AND SACRUM AND PERINEAL AREA. OPTIFOAM DRESSING IN PLACE WITH ZGUARD. HEEL PROTECTORS IN PLACE. PATIENT ORIENTED TO TREATMENT PLAN AND CALL LIGHT. SIDERAILS UP x3, BED LOCKED AND IN LOWEST POSITION. WILL CONTINUE TO MONITOR.
--- NOTE | 2019-05-01 20:20 | NUR ---
PATIENT TURNED AND REPOSITIONED TO OFFLOAD PRESSURE AREAS. PT HAD A LARGE BOWEL MOVEMENT, SOFT AND BROWN. ]PROVIDED PERICARE, CHANGED DRESSING AT SACRUM, CLEANED PERINEAL AREAS AND MELTON. BARRIER CREAM APPLIED. PATIENT TOLERATED FAIRLY. OPEN WOUNDS TO BUTTOCKS, SACRUM AND INCONTINENT DERMATITIS NOTED.
--- NOTE | 2019-05-01 21:15 | NUR ---
AIR CHECK/ AUSCULTATION COMPLETE AND CONFIRMED. RESIDUALS ARE 5ML.TOLERATING FEEDING WELL. EXPLAINED TO PATIENT BEDSIDE SWALLOW EVAL PROCEDURE, VERBALIZED UNDERSTANDING. TUBE FEEDING OFF. HOB HIGH FOWLERS POSITION. GAVE SMALL AMOUNT OF WATER, PATIENT ABLE TO TAKE VERY SMALL SIPS WITHOUT COUGHING BUT APPEARS TO BE WEAK AND UNABLE TO MAKE BIG GULPS WITHOUT GASPING FOR AIR. WILL FOLLOWUP WITH SPEECH THERAPIST AND CONTINUE NGT TO TUBE FEEDING.
--- NOTE | 2019-05-01 23:17 | NUR ---
ASSISTED PATIENT WITH ORAL CARE AND REPOSITIONING. PATIENT ONLY NEEDS MODERATE ASSISTANCE. ABLE TO BRUSH TEETH AND GARGLE. DENIES PAIN. ALL NEEDS MET AT THIS TIME. CALL LIGHT WITHIN REACH.
[2019-05-02] VITALS (10 sets, daily range): BP systolic 95–112; BP diastolic 41–70
[2019-05-02] MEDS: HYDRAGUARD CREAM TP SCH ×2 (01:02→12:52)
[2019-05-02] MEDS: Z-GUARD PASTE TP SCH ×2 (01:02→12:52)
--- NOTE | 2019-05-02 01:20 | NUR ---
TURNED AND REPOSITIONED. LUNG SOUNDS ARE SLIGHTLY COURSE, REINFORCED NASAL CANNULA. PATIENT REPORTING FEELING CONGESTED. RT MADE AWARE, RT WILL COME FOR BREATHING TREATMENT.PT VERBALIZED UNDERSTANDING. ENCOURAGED PATIENT TO COUGH, ATTEMPTED SUCTIONING BUT NO SECRETIONS . HOB 30 DEGREES. CALL LIGHT WITHIN REACH.
[2019-05-02] MEDS: ALBUTEROL SULFATE/IPRATROPIU 3 ML SOL IH PRN (01:47)
--- NOTE | 2019-05-02 01:50 | NUR ---
RT AT BEDSIDE FOR BREATHING TREATMENT. PATIENT TOLERATED WELL. MORE RELAXED NOW, LUNG SOUNDS ARE CLEAR WITH NO SIGNS OF DISTRESS. SATURATIONS 97%, BREATHING IS UNLABORED. NASAL CANNULA STILL IN PLACE. RESTING WELL, EYES CLOSED.
--- NOTE | 2019-05-02 03:30 | NUR ---
PATIENT IN BED, ANO x1, OPENS EYES SPONTANEOUSLY, FOLLOWS SIMPLE COMMANDS, MAKES NEEDS KNOWN. NASAL CANNULA IN PLACE 3LPM. REINFORCED DRESSING AT NGT. TUBE FEEDING STILL CONNECTED AND INFUSING. ABLE TO SELF SUCTION BUT PREFERS SPITTING UP SECRETIONS, PROVIDED EXTRA TISSUES.
--- NOTE | 2019-05-02 05:15 | NUR ---
SPONGE BATH, MELTON CARE AND WOUND CARE PROVIDED. SMALL AMOUNT OF BLOOD , PROVIDED BARRIER CREAM AND REPLACED OPTIFOAM DRESSING. TURNED AND REPOSITIONED. TOLERATED FAIRLY, DENIES PAIN. REQUESTING BREATHING TREATMENT. RT MADE AWARE.
[2019-05-02] MEDS: ALBUTEROL SULFATE/IPRATROPIU 3 ML SOL IH SCH ×3 (05:44→19:36)
[2019-05-02] MEDS: PIPERACILLIN/TAZOBACTAM 2.25 GM in DEXTROSE 5% 50 ML IV SCH ×2 (06:06→12:52)
[2019-05-02] MEDS: NACL 0.45% 1,000 ML IV SCH ×2 (06:06→12:10)
[2019-05-02] MEDS: MIDODRINE 5 MG TAB PO SCH ×3 (06:07→18:48)
[2019-05-02] MEDS: BLOOD GLUCOSE MONITORING 1 DEV DEV FS SCH ×4 (06:22→21:05)
[2019-05-02 07:20] LABS: BASOPHILS # (AUTO) 0.2 K/uL (0.00-0.22); BASOPHILS % (AUTO) 0.8 % (0.0-2.0); EOSINOPHILS # (AUTO) 0.3 K/uL (0-0.4); EOSINOPHILS % (AUTO) 1.2 % (0.0-4.0); HEMATOCRIT 24.9 % (36-48); HEMOGLOBIN 7.9 g/dL (12.0-16.0); LYMPHOCYTES # (AUTO) 1.3 K/uL (2.5-16.5); LYMPHOCYTES % (AUTO) 5.5 % (20.5-51.1); MEAN CORPUSCULAR HEMOGLOBIN 31 pg (27-31); MEAN CORPUSCULAR HGB CONC 32 g/dL (33-37); MEAN CORPUSCULAR VOLUME 98.1 fL (80-94); MONOCYTES % (AUTO) 4.3 % (1.7-9.3); NEUTROPHILS # (AUTO) 20.3 K/uL (1.8-7.7); NEUTROPHILS % (AUTO) 88.2 % (42.2-75.2); PLATELET COUNT (AUTO) 174 K/uL (140-450); RED BLOOD CELL COUNT(AUTO) 2.54 MIL/uL (4.20-5.40); RED CELL DISTRIBUTION WIDTH 19.1 % (11.6-13.7)
--- NOTE | 2019-05-02 07:30 | NUR ---
RECEIVED BEDSIDE REPORT FROM PIGMENT PROCESSOR NURSE, PT IS AAOX2, PERRL, ABLE TO FOLLOW COMMANDS, DENIES PAIN, VSS, NO S/S OF DISTRESS, RHONCHI LUNG SOUNDS ALINA. ON O2 AT 2L VIA NC, O2 SAT 97%, ST ON PERFORMANCE TEST ARCHITECT, CAP REFILL <2 SEC, MELTON CATHETER IN PLACE WITH CLOUDY MARY URINE VIA GRAVITY, LARGE SOFT ABDOMEN WITH ACTIVE BOWEL SOUNDS, RIGHT NGT IN PLACE, POSITIVE PLACEMENT CHECKED, FEEDING WITH GLUCERNA AT 60ML/HR, 5 ML OF RESIDUALS NOTED, SKIN IS WARM AND DRY TO TOUCH, OPEN WOUND PRESENT,(SEE WOUND ASSESSMENT), GENERALIZED WEAKNESS TO ALL EXTREMITIES, CENTRAL LINE TO LIJ, TLC, RUNNING 1/2NS AT 80ML/HR, AND CVP MONITOR WITH 12, HOB ELEVATED 30 DEGREES, SAFETY MEASURES IN PLACE, POSITION CHANGED FOR OFF LOAD PRESSURE , WILL CONTINUE TO MONITOR.
[2019-05-02 07:40] LABS: ANION GAP 4.6 (8-16); CARBON DIOXIDE 32.9 mmol/L (21-32); CHLORIDE 115 mmol/L (98-107); CREATININE 0.8 mg/dL (0.6-1.3); GLUCOSE 90 mg/dL (74-106); POTASSIUM 3.5 mmol/L (3.5-5.1); SODIUM SERUM 149 mmol/L (136-145); UREA NITROGEN, BLOOD 31 mg/dL (7-18)
--- NOTE | 2019-05-02 08:30 | NUR ---
DR. VELA CAME IN TO SEE PATIENT AT BEDSIDE, WILL FOLLOW UP WITH NEW ORDERS, PER HIM PT WILL CONTINUE MONITOR IN ICU.
[2019-05-02] MEDS ORDERED: FUROSEMIDE 20 MG TAB PO ONE (08:50)
[2019-05-02] MEDS: LACTULOSE 20 GM/30 ML UDC PO SCH (09:12)
[2019-05-02] MEDS: SODIUM FERRIC GLUCONATE 125 MG in NACL 0.9% 100 ML IV SCH (09:12)
[2019-05-02] MEDS: FERROUS SULFATE 300 MG/5 ML UDC GT SCH ×2 (09:12→21:05)
[2019-05-02] MEDS: INSULIN LANTUS 100 UNITS/ML 10 ML VIAL SUBQ SCH (09:13)
[2019-05-02] MEDS: LACTOBACILLUS RHAMNOSUS GG 1 EACH CAP PO SCH (09:13)
[2019-05-02] MEDS: PANTOPRAZOLE 40 MG INJ VIAL IVP SCH ×2 (09:13→21:06)
[2019-05-02] MEDS: ASCORBIC ACID 500 MG TAB PO SCH (09:13)
[2019-05-02] MEDS: CALCIUM CARB/VIT-D 500 MG/200 IU 1 TAB NG SCH (09:13)
[2019-05-02] MEDS: FUROSEMIDE 20 MG/2 ML VIAL IVP SCH ×2 (09:14→21:06)
--- NOTE | 2019-05-02 09:15 | NUR ---
SCHEDULED MEDICATION GIVEN VIA NGT, PT TOLERATED WELL.
[2019-05-02] MEDS: FLUCONAZOLE 200 MG/NS PREMIX 100 ML IV SCH ×2 (10:00→16:40)
--- NOTE | 2019-05-02 10:00 | NUR ---
PT IS RESTING IN BED, NO S/S OF DISTRESS, VSS, DENIES PAIN, POSITION CHANGED FOR OFF LOAD PRESSURE.
--- NOTE | 2019-05-02 12:00 | NUR ---
PT IS RESTING IN BED, TEMP 100.9 F NOTED, REDNESS ON FACE, MD MADE AWARE, TYLENOL GIVEN AND COOLING MEASURE IN USE. SUCTION PROVIDED, LARGE AMOUNT OF YELLOW SPUTUM NOTED, POSITION CHANGED FOR OFF LOAD PRESSURE.
[2019-05-02] MEDS: INSULIN LISPRO SLIDING SCALE 100 UNITS/ML VIAL SUBQ PRN (12:02)
--- NOTE | 2019-05-02 12:45 | NUR ---
PATIENT ATE ALL LUNCH STILL ASKING FOR FOOD, CALLED KITCHEN, PATIENT IS AGITATED KEEP CALLING THE CALL LIGHT AND VERBALLY ABUSIVE TO STAFF, STATED WANT TO GO, DR. GOSS AND DR. HUGGINS CAME IN, TALKED TO PATIENT AT BEDSIDE. OK TO SIGN AMA IF PATIENT INSIST, X-RAY CAME IN AT THIS TIME, PATIENT REFUSED TO GO AMA.
--- NOTE | 2019-05-02 13:00 | NUR ---
DR. MUSE CAME IN TO SEE PATIENT AT BEDSIDE, NO NEW ORDER AT THIS TIME.
--- NOTE | 2019-05-02 14:00 | NUR ---
NO S/S OF DISTRESS, VSS, DENIES PAIN, POSITION CHANGED FOR OFF LOAD PRESSURE.
--- NOTE | 2019-05-02 15:15 | NUR ---
CVP REMOVED PER DR. GOSS'S ORDER, PT TOLERATED WELL.
--- NOTE | 2019-05-02 16:00 | NUR ---
PM CARE AND MELTON CATHETER CARE, RUFUS CARE AND ORAL CARE PROVIDED, POSITION CHANGED FOR OFF LOAD PRESSURE.
--- NOTE | 2019-05-02 16:50 | NUR ---
DR. DOUGLAS CAME IN TO SEE PATIENT AT BEDSIDE, UPDATED PATIENT'S CONDITION, WILL FOLLOW UP WITH NEW ORDERS.
[2019-05-02] MEDS: VANCOMYCIN 1,250 MG in DEXTROSE 5% 250 ML IV SCH (17:53)
--- NOTE | 2019-05-02 18:00 | NUR ---
VSS, DENIES PAIN, POSITION CHANGED FOR OFF LOAD PRESSURE.
--- NOTE | 2019-05-02 19:00 | NUR ---
RECEIVED PT, AWAKE AND ALERT X2, NO SIGNS OF ACUTE DISTRESS, WITH O2 AT 2L/MIN VIA NC, ELEVATE HOB AT LEAST 30 DEGREES, MAINTAIN O2 SAT ABOVE 92%, SKIN IS WARM AND DRY, DRESSING ON SACRAL AREA INTACT, OFFLOAD TO PRESSURE AREAS, TURN AND REPOSITION, MELTON CATHETER IN PLACE, NG TUBE ALSO IN PLACE WITH TUBE FEEDING, TOLERATING WELL, MINIMUM RESIDUAL 10CC. DENIES OF ANY PAIN OR DISCOMFORT AT THIS TIME. SAFETY AND CONTACT PRECAUTIONS MAINTAINED. CONTINUE TO MONITOR.
--- NOTE | 2019-05-02 19:39 | NUR ---
RECEIVED PT FROM AM SHIFT. PT IS IN NO APPARENT RESPIRATORY DISTRESS AT THIS TIME: HR 98, RR 20, COURSE BREATH SOUNDS, AND SPO2 95% ON 3L NC. HHN TX GIVEN ORDERED WITH NO ADVERSE REACTION. HOB > 30 DEGREES, BVM AT BEDSIDE. WILL CONTINUE TO MONITOR PT.
[2019-05-02] MEDS ORDERED: MEROPENEM 500 MG VIAL IV ONE (21:47)
[2019-05-02] MEDS: MEROPENEM 500 MG in NACL 0.9% 50 ML IV SCH (22:14)
--- NOTE | 2019-05-02 22:44 | NUR ---
WOUND CARE RENDERED ORDERED, TOLERATED WELL, TURNED AND REPOSITION, OFFLOAD TO PRESSURE AREAS, TOLERATED WELL. KEPT CLEAN AND DRY.
[2019-05-03] VITALS (9 sets, daily range): BP systolic 97–120; BP diastolic 44–77
--- NOTE | 2019-05-03 00:01 | NUR ---
PT'S GTUBE OFF, NPO ORDERED. CONTINUE TO MONITOR.
[2019-05-03] MEDS: Z-GUARD PASTE TP SCH ×2 (00:27→12:17)
[2019-05-03] MEDS: HYDRAGUARD CREAM TP SCH ×2 (00:28→12:17)
--- NOTE | 2019-05-03 03:46 | NUR ---
PT CHANGED BED AND CLEANED, TURNED AND REPOSITIONED, TOLERATED WELL. CONTINUE TO MONITOR.
[2019-05-03] MEDS ORDERED: MEROPENEM 500 MG VIAL IV ONE ×2 (05:30→20:36)
[2019-05-03] MEDS ORDERED: HYDROcodone/APAP 5/325 MG 1 TAB TAB PO PRN (05:50)
[2019-05-03] MEDS: MEROPENEM 500 MG in NACL 0.9% 50 ML IV SCH ×3 (06:05→20:41)
[2019-05-03] MEDS: BLOOD GLUCOSE MONITORING 1 DEV DEV FS SCH ×4 (06:05→20:38)
[2019-05-03] MEDS: MIDODRINE 5 MG TAB PO SCH ×3 (06:05→18:23)
[2019-05-03 06:29] LABS: BASOPHILS # (AUTO) 0.1 K/uL (0.00-0.22); BASOPHILS % (AUTO) 0.6 % (0.0-2.0); EOSINOPHILS # (AUTO) 0.3 K/uL (0-0.4); EOSINOPHILS % (AUTO) 1.5 % (0.0-4.0); HEMATOCRIT 25.4 % (36-48); LYMPHOCYTES # (AUTO) 0.7 K/uL (2.5-16.5); LYMPHOCYTES % (AUTO) 3.8 % (20.5-51.1); MEAN CORPUSCULAR HEMOGLOBIN 31 pg (27-31); MEAN CORPUSCULAR HGB CONC 32 g/dL (33-37); MEAN CORPUSCULAR VOLUME 99.5 fL (80-94); MONOCYTES # (AUTO) 1.2 K/uL (0.8-1.0); MONOCYTES % (AUTO) 6.4 % (1.7-9.3); NEUTROPHILS # (AUTO) 16.6 K/uL (1.8-7.7); NEUTROPHILS % (AUTO) 87.7 % (42.2-75.2); PLATELET COUNT (AUTO) 206 K/uL (140-450); RED BLOOD CELL COUNT(AUTO) 2.55 MIL/uL (4.20-5.40); RED CELL DISTRIBUTION WIDTH 20.8 % (11.6-13.7); WHITE BLOOD COUNT (AUTO) 18.9 K/uL (4.8-10.8)
[2019-05-03 06:54] LABS: ANION GAP 9.6 (8-16); CARBON DIOXIDE 30.9 mmol/L (21-32); CHLORIDE 111 mmol/L (98-107); CREATININE 0.8 mg/dL (0.6-1.3); GLUCOSE 74 mg/dL (74-106); POTASSIUM 3.5 mmol/L (3.5-5.1); SODIUM SERUM 148 mmol/L (136-145); UREA NITROGEN, BLOOD 26 mg/dL (7-18)
[2019-05-03 07:04] LABS: MAGNESIUM 1.9 mg/dL (1.8-2.4); PHOSPHORUS 2.9 mg/dL (2.5-4.9)
--- NOTE | 2019-05-03 07:15 | NUR ---
RECEIVED BEDSIDE REPORT FROM STUDENT WORKER NURSE, PT IS AAOX2, PERRL, ABLE TO FOLLOW COMMANDS, DENIES PAIN, VSS, NO S/S OF DISTRESS, RHONCHI LUNG SOUNDS ALINA. ON O2 AT 2L VIA NC, O2 SAT 95%, ST ON LANDSCAPE ARCHITECT AND PLANNER, CAP REFILL <2 SEC, MELTON CATHETER IN PLACE WITH CLOUDY MARY URINE VIA GRAVITY, LARGE SOFT ABDOMEN WITH ACTIVE BOWEL SOUNDS, RIGHT NGT IN PLACE, POSITIVE PLACEMENT CHECKED, NPO EXCEPT MEDS, SKIN IS WARM AND DRY TO TOUCH, OPEN WOUND PRESENT,(SEE WOUND ASSESSMENT), GENERALIZED WEAKNESS TO ALL EXTREMITIES, CENTRAL LINE TO LIJ, TLC, RUNNING 1/2NS AT 20ML/HR, HOB ELEVATED 30 DEGREES, SAFETY MEASURES IN PLACE, POSITION CHANGED FOR OFF LOAD PRESSURE , WILL CONTINUE TO MONITOR.
[2019-05-03] MEDS: ALBUTEROL SULFATE/IPRATROPIU 3 ML SOL IH SCH ×3 (07:19→19:14)
[2019-05-03] MEDS: CALCIUM CARB/VIT-D 500 MG/200 IU 1 TAB NG SCH (08:14)
[2019-05-03] MEDS: ASCORBIC ACID 500 MG TAB PO SCH (08:14)
[2019-05-03] MEDS: FERROUS SULFATE 300 MG/5 ML UDC GT SCH ×2 (08:14→20:41)
[2019-05-03] MEDS: PANTOPRAZOLE 40 MG INJ VIAL IVP SCH (08:14)
[2019-05-03] MEDS: LACTULOSE 20 GM/30 ML UDC PO SCH (08:14)
[2019-05-03] MEDS: FUROSEMIDE 20 MG/2 ML VIAL IVP SCH ×2 (08:14→20:42)
[2019-05-03] MEDS: LACTOBACILLUS RHAMNOSUS GG 1 EACH CAP PO SCH (08:15)
--- NOTE | 2019-05-03 08:30 | NUR ---
SCHEDULED MEDICATION GIVEN, HELD LANTUS PER DR. ADLER AT THIS TIME DUE TO PATIENT IS NPO AND BS WAS 72MG/DL AND HX OF HYPOGLYCEMIC.
[2019-05-03] MEDS: INSULIN LANTUS 100 UNITS/ML 10 ML VIAL SUBQ SCH (09:00)
--- NOTE | 2019-05-03 09:00 | NUR ---
PT EVAL AT BEDSIDE, PT TOLERATED WELL.
[2019-05-03] MEDS: SODIUM FERRIC GLUCONATE 125 MG in NACL 0.9% 100 ML IV SCH (09:12)
--- NOTE | 2019-05-03 10:50 | NUR ---
WOUND CARE RE-EVALUATION NOTE: SKIN ASSESSMENT DONE WITH PRIMARY RN, PER PRIMARY RN PT. RECEIVED FLEET ENEMA WITH INCONTINENT OF BM, DURING ASSESSMENT PT. HAS ONE EPISODE OF BM, GOOD RUFUS CARE PROVIDES. CHANGE OF SKIN CONDITION TO SACRALCOCCYX AND BUTTOCKS. 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 PREVIOUS MULTIPLE SKIN EROSIONS WITH DENUDED SKIN OFF WITH ENTIRE MEASUREMENT OF 11X 9 X0.1 CM, 100 % GRANULATING TISSUE, MOIST, NO ODOR, SURROUNDING DENUDED SKIN WITH FURTHER DAMAGE INDICATED. RECOMMENDATIONS: - DCD PREVIOUS ORDER Z GUARD TO SACRALCOCCYX, R/L BUTTOCKS, -CLEANSE SACRALCOCCYX, R/L BUTTOCKS, WITH MILD SOAP AND WATER, PAT DRY, APPLY HYDROGEL AND COVER WITH FOAM DRESSING QD AND PRN IF SOILING ALL ABOVE RECOMMENDATIONS DISCUSSED WITH PRIMARY RN. WILL FOLLOW UP PT Q7-10 DAYS. PLEASE CONTACT WOUND CARE NURSE FOR ANY QUESTION AND CHANGE OF WOUND CONDITION. Addendum: 05/03/19 at 1249 by Michelle Brewer RN (Grace) CHANGE OF SKIN CONDITION TO SACRALCOCCYX AND R/L BUTTOCKS REPORTED AND POC DISCUSSED WITH DR. URIBE. SPOKE TO SONFUNMILAYO AND DAUGHTER RIZWAN REPORT OF CHANGE OF SKIN CONDITION TO SACRALCOCCYX AND R/L BUTTOCKS, POC DISCUSSED, ALL QUESTIONS ANSWERED. Addendum: 05/03/19 at 1319 by Michelle Brewer RN (Grace) CLARIFICATION MEASUREMENT: SACRALCOCCYX PRESSURE ULCER STAGE 2 WITH 1X1X0.1CM ,WOUND BED 100% RED AND MOIST, NO ODOR, SURROUNDING SKIN OPEN WOUND MERGED WITH R/L BUTTOCKS OPEN WOUNDS, ENTIRE MEASUREMENT MENTIONED ABOVE.
--- NOTE | 2019-05-03 11:44 | NUR ---
*S.T. Bedside Swallow Eval complted* See report for details. Pt presents w/ moderate oropharyngeal dysphagia c/b prolonged mastication of solids, delayed pharyngeal swallow response, effortful swallows across all textures and delayed wet coughing after swallows of thin and nectar thick liquids. Recommend: 1) Advance to mechanical soft ground diet, honey thick liquids only, via spoon. No straws. 2) P.O. meds crushed 3) 1:1 feeder w/ aspiration precautions including upright at 90 degrees, only feed if alert. Small sips/bites at slow pace. 4) S.T. to follow up 2x/1 week w/ P.O. trials to ensure tolerance of recommended diet textures and advance diet textures as appropriate. D/w pt and endorsed to MILO Maciel. Time [id number]
--- NOTE | 2019-05-03 12:00 | NUR ---
NO S/S OF DISTRESS, VSS, DENIES PAIN, POSITION CHANGED FOR OFF LOAD PRESSURE. Addendum: 05/03/19 at 1629 by Bianca Donaldson RN NGT REMOVED PER DR. FONTENOT, PT TOLERATED WELL OF THE PROCEDURE.
[2019-05-03] MEDS: NACL 0.45% 1,000 ML IV SCH (12:16)
--- NOTE | 2019-05-03 12:30 | NUR ---
DR. ASHRAF CAME IN TO SEE PATIENT AT BEDSIDE, SINCE PATIENT STARTED EATING AND NO GI BLEEDING, DR. ASHRAF SAID NO NEED EGD AT THIS TIME.
[2019-05-03] MEDS: SKINTEGRITY HYDROGEL TP SCH (13:00)
--- NOTE | 2019-05-03 13:00 | NUR ---
PATIENT WAS COUGHING WHEN ASSIST EATING LUNCH, DIFFICULTY SWALLOW SOFT MEAT, BUT ABLE TO EAT PUREE FOOD AND HONEY THICKENED WATER, MD AWARE. WILL CONTINUE TO MONITOR.
--- NOTE | 2019-05-03 15:00 | NUR ---
TRANSFERRED PATIENT TO WOUND PREVENTION MATTRESS, PM CARE PROVIDED, ORAL CARE AND MELTON CATHETER CARE PROVIDED, PT TOLERATED WELL.
--- NOTE | 2019-05-03 15:59 | NUR ---
05/03/19 RD FOLLOW UP COMPLETED PLEASE REFER TO NUTRITION ASSESSMENT UNDER CARE ACTIVITY FOR ESTIMATED NUTRITIONAL NEEDS. 1. CONTINUE CCHO 60GM MECHANICAL SOFT DIET WITH HONEY THICK LIQUIDS 2. RECOMMEND GLUCERNA BID TOLERATED WITH HONEY THICKENER 3. PROVIDE FEEDING ASSISTANCE WITH MEALS 4. RD TO FOLLOW-UP 2-3 DAYS, HIGH RISK CON TOM RD
--- NOTE | 2019-05-03 16:00 | NUR ---
PT IS RESTING IN BED WATCHING TV, NO S/S OF DISTRESS, VSS, DENIES PAIN, POSITION CHANGED FOR OFF LOAD PRESSURE.
[2019-05-03] MEDS: FLUCONAZOLE 200 MG/NS PREMIX 100 ML IV SCH (16:27)
[2019-05-03] MEDS: DEXT 5% /NACL 0.9% 1,000 ML IV SCH (17:37)
--- NOTE | 2019-05-03 18:00 | NUR ---
PT HAD A NAUSEA, NO VOMITING AT THIS TIME, C/O ABDOMINAL PAIN, REFUSED PAIN MEDICATION, DR. ADLER MADE AWARE, ZOFRAN GIVEN.
[2019-05-03] MEDS: VANCOMYCIN 1,250 MG in DEXTROSE 5% 250 ML IV SCH (18:06)
--- NOTE | 2019-05-03 18:55 | NUR ---
PT IS STABLE AT THIS TIME, NO S/S OF DISTRESS, TRANSFERRED PATIENT TO ROOM 108 WITH BED, REPORT GIVEN TO MILO BELLO FOR CONTINUE OF CARE, ALL BELONGINGS WENT WITH PATIENT.
--- NOTE | 2019-05-03 18:55 | NUR ---
RECEIVED REPORT FROM SHEA PASTRANA FROM ICU. PT IS STABLE. CALL LIGHT WITHIN PT'S REACH, BED ON LOW, SIDERAIL UP.
[2019-05-03] MEDS: ONDANSETRON 4 MG/2 ML VIAL IVP PRN (19:03)
--- NOTE | 2019-05-03 19:11 | NUR ---
REPORT GIVEN TO OPTICAL MECHANIC APPRENTICE NURSE FOR CONTINUITY OF CARE. PT IS STABLE.
--- NOTE | 2019-05-03 19:12 | NUR ---
RECEIVED BEDSIDE REPORT FROM DAY SHIFT NURSE, FAMILY AT BEDSIDE, JUST FINISHED HD, PT ABLE TO MAKE NEEDS KNOWN. NO S/S OF DISTRESS, ON O2 AT 2L VIA NC, MELTON CATHETER IN PLACE. SKIN IS WARM AND DRY TO TOUCH, GENERALIZED WEAKNESS TO ALL EXTREMITIES, CENTRAL LINE TO LIJ, TLC, SAFETY MEASURES IN PLACE, BED IN LOW POSITION, WILL CONTINUE TO MONITOR. Addendum: 05/03/19 at 2119 by Paul Beckett RN WRONG PATIENT.
--- NOTE | 2019-05-03 19:12 | NUR ---
RECEIVED BEDSIDE REPORT FROM DAY SHIFT NURSE, DENIES PAIN, NO S/S OF DISTRESS, BREATHING EVEN AND UNLABORED ON O2 AT 2L VIA NC, MELTON CATHETER IN PLACE WITH CLOUDY MARY URINE VIA GRAVITY, SKIN IS WARM AND DRY TO TOUCH, GENERALIZED WEAKNESS TO ALL EXTREMITIES, CENTRAL LINE TO LIJ, SAFETY MEASURES IN PLACE, BED IN LOW POSITION, WILL CONTINUE TO MONITOR.
[2019-05-03] MEDS: INSULIN LISPRO SLIDING SCALE 100 UNITS/ML VIAL SUBQ PRN (20:40)
[2019-05-03] MEDS: FAMOTIDINE 20 MG TAB PO SCH (20:41)
--- NOTE | 2019-05-03 20:42 | NUR ---
GIVEN FERROUS, MERREM, LASIX, PEPCID MD ORDERED. BS CHECKED, 153, ADMINISTER INSULIN SLIDING SCALE. PT TOLERATED WELL.
--- NOTE | 2019-05-03 23:55 | NUR ---
PT SLEEPING IN BED COMFORTABLY. NO ACUTE DISTRESS NOTED.
[2019-05-04] VITALS: BP 98/43
--- NOTE | 2019-05-04 01:00 | NUR ---
ASSESSED WOUND, APPLIED Z-GUARD, HYDRA-GUARD, CHANGED DRESSING MD ORDERED. PT TOLERATED WELL.
[2019-05-04] MEDS: HYDRAGUARD CREAM TP SCH ×2 (01:06→14:09)
[2019-05-04] MEDS: Z-GUARD PASTE TP SCH ×2 (01:06→14:09)
--- NOTE | 2019-05-04 02:29 | NUR ---
PT AWAKE, RESTING IN BED. NO ACUTE DISTRESS NOTED.
[2019-05-04 04:00] VITALS: BP 93/45
[2019-05-04] MEDS ORDERED: MEROPENEM 500 MG VIAL IV ONE (05:11)
[2019-05-04] MEDS: MEROPENEM 500 MG in NACL 0.9% 50 ML IV SCH ×3 (05:24→21:00)
--- NOTE | 2019-05-04 05:24 | NUR ---
GIVEN MERREM MD ORDERED. PT TOLERATED WELL.
[2019-05-04] MEDS: DEXT 5% /NACL 0.9% 1,000 ML IV SCH (05:50)
[2019-05-04] MEDS: MIDODRINE 5 MG TAB PO SCH ×3 (06:22→18:30)
[2019-05-04] MEDS: BLOOD GLUCOSE MONITORING 1 DEV DEV FS SCH ×4 (06:22→21:00)
[2019-05-04] MEDS: INSULIN LISPRO SLIDING SCALE 100 UNITS/ML VIAL SUBQ PRN (06:26)
--- NOTE | 2019-05-04 06:26 | NUR ---
GIVEN MIDODRINE MD ORDERED, BS CHECKED, 163, ADMINISTERED INSULIN SLIDING SCALE. PT TOLERATED WELL.
[2019-05-04] MEDS: ALBUTEROL SULFATE/IPRATROPIU 3 ML SOL IH SCH ×3 (06:55→19:45)
[2019-05-04 07:17] LABS: BASOPHILS % (AUTO) 0.2 % (0.0-2.0); EOSINOPHILS # (AUTO) 0.3 K/uL (0-0.4); EOSINOPHILS % (AUTO) 2.2 % (0.0-4.0); HEMOGLOBIN 7.4 g/dL (12.0-16.0); LYMPHOCYTES # (AUTO) 0.8 K/uL (2.5-16.5); MEAN CORPUSCULAR HEMOGLOBIN 32 pg (27-31); MEAN CORPUSCULAR HGB CONC 31 g/dL (33-37); MEAN CORPUSCULAR VOLUME 101.5 fL (80-94); MONOCYTES # (AUTO) 1.3 K/uL (0.8-1.0); MONOCYTES % (AUTO) 10.7 % (1.7-9.3); NEUTROPHILS # (AUTO) 9.5 K/uL (1.8-7.7); NEUTROPHILS % (AUTO) 79.9 % (42.2-75.2); PLATELET COUNT (AUTO) 246 K/uL (140-450); RED BLOOD CELL COUNT(AUTO) 2.36 MIL/uL (4.20-5.40); RED CELL DISTRIBUTION WIDTH 23.5 % (11.6-13.7); WHITE BLOOD COUNT (AUTO) 11.9 K/uL (4.8-10.8)
--- NOTE | 2019-05-04 07:20 | NUR ---
REPORT RECEIVED FROM NURSE PAKRS. PT AWAKE A/OX2 ABLE TO COMMUNICATE NEEDS, PT ON AIR MATTRESS. IVF INFUSING TO LIJ PER ORDER, PATENT INTACT, NO REDNESS OR SWELLING NOTED TO SITE, PT CONTINUES TO HAVE GEN EDEMA. PT APPEARS COMFORTABLE AT THIS TIME. DENIES PAIN OR SOB. NO S/S OF ACUTE DISTRESS NOTED, CALL LIGHT AND PERSONAL ITEMS REMAIN WITHIN EASY REACH, SAFETY AND FALL PRECAUTIONS REMAIN IN PLACE, WILL CONTINUE TO MONITOR.
[2019-05-04 07:30] LABS: ANION GAP 6.9 (8-16); CARBON DIOXIDE 32.3 mmol/L (21-32); CHLORIDE 112 mmol/L (98-107); CREATININE 0.6 mg/dL (0.6-1.3); GLUCOSE 166 mg/dL (74-106); POTASSIUM 3.2 mmol/L (3.5-5.1); SODIUM SERUM 148 mmol/L (136-145); UREA NITROGEN, BLOOD 22 mg/dL (7-18)
[2019-05-04 07:39] LABS: MAGNESIUM 1.9 mg/dL (1.8-2.4); PHOSPHORUS 2.4 mg/dL (2.5-4.9)
[2019-05-04 08:00] VITALS: BP 86/50
[2019-05-04] MEDS: CALCIUM CARB/VIT-D 500 MG/200 IU 1 TAB NG SCH (08:07)
[2019-05-04] MEDS: LACTOBACILLUS RHAMNOSUS GG 1 EACH CAP PO SCH (08:07)
[2019-05-04] MEDS: FERROUS SULFATE 300 MG/5 ML UDC GT SCH ×2 (08:07→22:12)
[2019-05-04] MEDS: FAMOTIDINE 20 MG TAB PO SCH ×2 (08:07→22:11)
[2019-05-04] MEDS: ASCORBIC ACID 500 MG TAB PO SCH (08:07)
[2019-05-04] MEDS: INSULIN LANTUS 100 UNITS/ML 10 ML VIAL SUBQ SCH (08:12)
--- NOTE | 2019-05-04 08:45 | NUR ---
DR JIMENEZ IN HOUSE TO ROUND ON PT, PT REMAINS A/OX2 ABLE TO COMMUNICATE NEEDS. NOTIFIED MD OF CURRENT BP AND TREND, HELD TODAYS SPIRONALDACTONE AND LASIX PER DR JIMENEZ. PT APPEARS COMFORTABLE AT THIS TIME. NO S/S OF ACUTE DISTRESS N0TOED AT THIS TIME, CALL LIGHT AND PERSONAL ITEMS WITHIN EASY REACH, SAFETY AND FALL PRECAUTIONS REMAIN IN PLACE, WILL CONTINUE TO MONITOR.
[2019-05-04] MEDS: SPIRONOLACTONE 25 MG TAB PO SCH (09:00)
[2019-05-04] MEDS: FUROSEMIDE 20 MG/2 ML VIAL IVP SCH ×2 (09:00→21:00)
[2019-05-04] MEDS ORDERED: KCL 20 MEQ/WATER INJ PREMIX 200 ML IV SCH (09:30)
[2019-05-04] MEDS: SODIUM PHOS / POTASSIUM PHOS 1 PKT PDR PO SCH (09:42)
[2019-05-04] MEDS: ONDANSETRON 4 MG/2 ML VIAL IVP PRN (09:49)
[2019-05-04] MEDS: DEXT 5% / NACL 0.45% 1,000 ML IV SCH ×2 (09:49→19:59)
--- NOTE | 2019-05-04 11:45 | NUR ---
PT RESTING, APPEARS COMFORTABLE AT THIS TIME. NO S/S OF ACUTE DISTRESS NOTED, CALL LIGHT AND PERSONAL ITEMS REMAIN WITHIN EASY REACH, SAFETY AND FALL PRECAUTIONS REMAIN IN PLACE, WILL CONTINUE TO MONITOR.
[2019-05-04 12:00] VITALS: BP 96/59
--- NOTE | 2019-05-04 12:52 | NUR ---
* ST TX NOTE * Pt seen at bedside. Pt alert, cooperative and engaged throughout session, reporting no c/o pain at this time. Pt tolerating 6/6 alternating PO trials of puree apple sauce as well as 6/6 alternating PO trials of honey-thickened lemon water, all 1-3 CCs at a time via a spoon w/o s/s of aspiration or choking. Pt requiring total assistance w/feeding at this time. Pt and nsg/caregiver Saquaria education completed re: results of skilled EMERGENCY MEDICAL SERVICE COORDINATOR therapeutic feeding trials tx, benefits of abiding by aspiration precautions and recommended PO diet consistency; and prognosis for improvement, w/pt and nsg Saquaria verbalizing understanding and agreement w/clinician's recommendations. ST to FF 2x/week for 1 week to further address pt's tolerance of recommended PO diet consistency and/or to assess least restrictive PO diet consistency. Recommend: - PO DIET CONSISTENCY OF PUREE TEXTURES W/HONEY-THICKENED LIQUIDS FOR ALL MEALS - PO ADMINISTRATION OF HONEY-THICKENED LIQUIDS BY SPOON ONLY - NO STRAW OR CUP USE - PO MEDICATION ADMINISTRATION CRUSHED IN PUREE TEXTURES - Pt requires total assistance w/feeding - Feeder/Caregiver to SIT PT UP AT 80-90 DEGREE ANGLE DURING PO INTAKE; FEED PT SLOWLY; ALTERNATE BTWN SOLIDS & LIQUIDS; AND PROVIDE SMALL BITES/SIPS ST to FF 2x/week for 1 week to further assess pt's tolerance of recommended PO diet consistency. NOMS Level 4 Time In/Out 11:45 - 12:15
[2019-05-04] MEDS: SKINTEGRITY HYDROGEL TP SCH (13:00)
--- NOTE | 2019-05-04 13:15 | NUR ---
PT REMAINS A/O ABLE TO COMMUNICATE NEEDS, FAMILY AT BEDSIDE, DISCUSSED POC W PATIENT AND FAMILY, DR EVANS AND CASE MANAGEMENT AND NURSING ADDRESSED PT FAMILY CONCERNS AT BEDSIDE. DIETARY NOTIFIED FOR LATE LUNCH TRAY PT DENIES PAIN OR DISCOMFORT OR SOB, NO S/S OF ACUTE DISTRESS NOTED, CALL LIGHT AND PERSONAL ITEMS REMAIN WITHIN EASY REACH, SAFETY AND FALL PRECAUTIONS REMAIN IN PLACE, WILL CONTINUE TO MONITOR.
[2019-05-04 16:00] VITALS: BP 90/51
--- NOTE | 2019-05-04 16:00 | NUR ---
PT FAMILY AT BEDSIDE, PT REMAINS A/OX2 ABLE TO COMMUNICATE NEEDS. PT DENIES PAIN OR SOB, ASSISTED TO REPOSITION PILLOW FOR COMFORT. CALL LIGHT AND PERSONAL ITEMS REMAIN WITHIN EASY REACH, SAFETY AND FALL PRECAUTIONS REMAIN IN PLACE, WILL CONTINUE TO MONITOR.
[2019-05-04] MEDS: FLUCONAZOLE 200 MG/NS PREMIX 100 ML IV SCH (16:01)
[2019-05-04] MEDS: VANCOMYCIN 1,250 MG in DEXTROSE 5% 250 ML IV SCH (17:32)
--- NOTE | 2019-05-04 19:10 | NUR ---
PT REMAINS A/OX 2 ABLE TO COMMUNICATE NEEDS, NO S/S OF ACUTE DISTRESS NOTED AT THIS TIME. BEDSIDE REPORT ENDORSED TO ONCOMING NURSE BOY.
[2019-05-04 20:00] VITALS: BP 91/51
[2019-05-05] VITALS: BP 90/48
[2019-05-05] MEDS: HYDRAGUARD CREAM TP SCH ×2 (02:44→13:00)
[2019-05-05] MEDS: Z-GUARD PASTE TP SCH ×2 (02:47→13:00)
[2019-05-05] MEDS: MEROPENEM 500 MG in NACL 0.9% 50 ML IV SCH ×3 (04:52→21:28)
[2019-05-05] MEDS: DEXT 5% / NACL 0.45% 1,000 ML IV SCH (04:57)
[2019-05-05 07:11] LABS: BASOPHILS # (AUTO) 0.1 K/uL (0.00-0.22); BASOPHILS % (AUTO) 0.7 % (0.0-2.0); EOSINOPHILS # (AUTO) 0.3 K/uL (0-0.4); EOSINOPHILS % (AUTO) 2.4 % (0.0-4.0); HEMOGLOBIN 8.4 g/dL (12.0-16.0); LYMPHOCYTES # (AUTO) 0.7 K/uL (2.5-16.5); MEAN CORPUSCULAR HEMOGLOBIN 32 pg (27-31); MEAN CORPUSCULAR HGB CONC 31 g/dL (33-37); MEAN CORPUSCULAR VOLUME 101.5 fL (80-94); MONOCYTES # (AUTO) 1.2 K/uL (0.8-1.0); MONOCYTES % (AUTO) 10.4 % (1.7-9.3); NEUTROPHILS % (AUTO) 80.5 % (42.2-75.2); PLATELET COUNT (AUTO) 326 K/uL (140-450); RED BLOOD CELL COUNT(AUTO) 2.66 MIL/uL (4.20-5.40); RED CELL DISTRIBUTION WIDTH 24.2 % (11.6-13.7); WHITE BLOOD COUNT (AUTO) 11.1 K/uL (4.8-10.8)
--- NOTE | 2019-05-05 07:15 | NUR ---
RECEIVED REPORT FROM EMERGENCY VEHICLE TECHNICIAN NURSE. PATIENT LYING DOWN IN BED, AWAKE, ALERT, CONFUSED. PER NIGHT RN, PATIENT PULLED OUT LEFT IJ AT 0600, NO IV SITE AT THIS TIME. MD ALREADY AWARE. WILL TRY TO PLACE PERIPHERAL LINE LATER. RESPIRATIONS EVEN, UNLABORED, ON ROOM AIR. MELTON CATHETER IN PLACE. ABDOMEN SOFT, NON-DISTENDED. REVIEWED PLAN OF CARE WITH PATIENT. REINFORCEMENT NEEDED. SAFETY MEASURES IN PLACE, CALL LIGHT WITHIN REACH. WILL CONTINUE TO MONITOR.
[2019-05-05 07:22] LABS: CREATININE 0.7 mg/dL (0.6-1.3); GLUCOSE 86 mg/dL (74-106); UREA NITROGEN, BLOOD 21 mg/dL (7-18)
[2019-05-05] MEDS: ALBUTEROL SULFATE/IPRATROPIU 3 ML SOL IH SCH ×4 (07:28→19:00)
[2019-05-05 07:34] LABS: MAGNESIUM 1.9 mg/dL (1.8-2.4); PHOSPHORUS 1.7 mg/dL (2.5-4.9); POTASSIUM 3.1 mmol/L (3.5-5.1)
[2019-05-05 07:38] LABS: CARBON DIOXIDE 33.2 mmol/L (21-32); CHLORIDE 113 mmol/L (98-107); SODIUM SERUM 150 mmol/L (136-145)
[2019-05-05 07:39] LABS: ANION GAP 6.9 (8-16)
[2019-05-05 08:00] VITALS: BP 106/59
[2019-05-05] MEDS: BLOOD GLUCOSE MONITORING 1 DEV DEV FS SCH ×4 (08:05→21:30)
[2019-05-05] MEDS: LACTOBACILLUS RHAMNOSUS GG 1 EACH CAP PO SCH (08:59)
[2019-05-05] MEDS: SODIUM PHOS / POTASSIUM PHOS 1 PKT PDR PO SCH (08:59)
[2019-05-05] MEDS: MIDODRINE 5 MG TAB PO SCH ×3 (08:59→18:22)
[2019-05-05] MEDS: ASCORBIC ACID 500 MG TAB PO SCH (08:59)
[2019-05-05] MEDS: CALCIUM CARB/VIT-D 500 MG/200 IU 1 TAB NG SCH (08:59)
[2019-05-05] MEDS: FERROUS SULFATE 300 MG/5 ML UDC GT SCH ×2 (08:59→21:27)
[2019-05-05] MEDS: INSULIN LANTUS 100 UNITS/ML 10 ML VIAL SUBQ SCH (09:00)
[2019-05-05] MEDS: SPIRONOLACTONE 25 MG TAB PO SCH (09:00)
[2019-05-05] MEDS: FAMOTIDINE 20 MG TAB PO SCH ×2 (09:00→21:27)
[2019-05-05] MEDS: FUROSEMIDE 20 MG/2 ML VIAL IVP SCH ×2 (09:00→21:28)
[2019-05-05] MEDS: NACL 0.45% 1,000 ML IV SCH (09:00)
--- NOTE | 2019-05-05 09:09 | NUR ---
PATIENT SITTING DOWN IN BED WATCHING TV. NO DISTRESS NOTED. DENIES ANY PAIN. SCHEDULED MEDICATIONS DUE GIVEN. WILL CONTINUE TO MONITOR.
--- NOTE | 2019-05-05 11:12 | NUR ---
05/05/19 RD FOLLOW UP COMPLETED PLEASE REFER TO NUTRITION ASSESSMENT UNDER CARE ACTIVITY FOR ESTIMATED NUTRITIONAL NEEDS. 1. CONTINUE CCHO 60GM PUREE DIET WITH HONEY THICK LIQUIDS 2. RECOMMEND GLUCERNA BID TOLERATED WITH HONEY THICKENER 3. PROVIDE FEEDING ASSISTANCE WITH MEALS 4. RD TO FOLLOW-UP 3-5 DAYS, MODERATE RISK CON TOM RD
[2019-05-05 12:00] VITALS: BP 103/53
[2019-05-05] MEDS: SKINTEGRITY HYDROGEL TP SCH (13:00)
--- NOTE | 2019-05-05 14:09 | NUR ---
NEW IV LINE STARTED ON RIGHT HAND ON SECOND ATTEMPT. PATIENT TOLERATED PROCEDURE WELL. SCHEDULED MEDICATIONS DUE GIVEN. MIDODRINE NOT GIVEN AT THIS TIME PATIENT IS VOMITING AFTER EATING LUNCH, NO NAUSEA REPORTED, JUST VOMITING. WILL CONTINUE TO MONITOR.
[2019-05-05 16:00] VITALS: BP 115/63
[2019-05-05] MEDS: FLUCONAZOLE 200 MG/NS PREMIX 100 ML IV SCH (16:47)
[2019-05-05] MEDS: VANCOMYCIN 1,250 MG in DEXTROSE 5% 250 ML IV SCH (18:11)
--- NOTE | 2019-05-05 18:18 | NUR ---
SCHEDULED MEDICATIONS DUE GIVEN. WILL CONTINUE TO MONITOR.
--- NOTE | 2019-05-05 19:18 | NUR ---
GAVE REPORT TO LEATHER STITCHER NURSE FOR CONTINUITY OF CARE. PATIENT IN STABLE CONDTION.
--- NOTE | 2019-05-05 19:45 | NUR ---
A/A/ O X2.DENIES ANY DISCOMFORT @ THIS TIME. DENIES SOB,O2 SAT ON 2L NC 93%.IVF 1/2 NS @ 50 ML/HR ON HER RIGHT HAND INFUSING WELL.LEFT UPPER CHEST TRIPLE LUMEN CL,LEAKING. HAS GENERALIZED EDEMA 2+. NOTED BILATERAL ANTERIOR SCHILLING WITH MITTAL SCALY LESIONS.DRESSING ON SACRAL AREA DRY & INTACT.MELTON CATH DRAINAGE WITH YELLOW URINE WITH SEDIMENTS.INSTRUCTED TO USE CALL LIGHT NEEDED;WITHIN REACH.
[2019-05-05 20:00] VITALS: BP 143/66
--- NOTE | 2019-05-05 20:15 | NUR ---
1899 PATIENT REFUSED HHNTX. I ENCOURAGED PT TO TAKE IT.
--- NOTE | 2019-05-05 22:00 | NUR ---
A/A/ O X2 IN NO ACUTE DISTRESS. DENIES ANY DISCOMFORT.REPOSITION FOR COMFORT.ON ALBINO MATTRESS.
[2019-05-06] VITALS (7 sets, daily range): BP systolic 106–123; BP diastolic 52–64
--- NOTE | 2019-05-06 | NUR ---
AFEBRILE.TELE SHOWED SR.
[2019-05-06] MEDS: HYDRAGUARD CREAM TP SCH ×2 (01:00→14:07)
--- NOTE | 2019-05-06 02:00 | NUR ---
A/A/ OX2.DENIES ANY DISCOMFORT@ THIS TIME.DENIES SOB.
[2019-05-06] MEDS ORDERED: POTASSIUM CHLORIDE 10 MEQ TABER PO SCH ×3 (02:45→21:00)
--- NOTE | 2019-05-06 04:00 | NUR ---
V/S STABLE.AFEBRILE.TELE SHOWED ST.
[2019-05-06] MEDS: Z-GUARD PASTE TP SCH ×2 (04:07→14:06)
[2019-05-06] MEDS: NACL 0.45% 1,000 ML IV SCH ×2 (05:00→23:55)
[2019-05-06] MEDS: MEROPENEM 500 MG in NACL 0.9% 50 ML IV SCH ×3 (05:03→21:46)
[2019-05-06] MEDS: BLOOD GLUCOSE MONITORING 1 DEV DEV FS SCH ×4 (06:37→21:43)
[2019-05-06] MEDS: MIDODRINE 5 MG TAB PO SCH ×3 (06:37→18:38)
[2019-05-06 06:43] LABS: BASOPHILS # (AUTO) 0.1 K/uL (0.00-0.22); BASOPHILS % (AUTO) 0.8 % (0.0-2.0); EOSINOPHILS # (AUTO) 0.2 K/uL (0-0.4); EOSINOPHILS % (AUTO) 1.5 % (0.0-4.0); HEMOGLOBIN 8.6 g/dL (12.0-16.0); LYMPHOCYTES # (AUTO) 0.7 K/uL (2.5-16.5); LYMPHOCYTES % (AUTO) 6.4 % (20.5-51.1); MEAN CORPUSCULAR HEMOGLOBIN 32 pg (27-31); MEAN CORPUSCULAR HGB CONC 32 g/dL (33-37); MEAN CORPUSCULAR VOLUME 101.4 fL (80-94); NEUTROPHILS # (AUTO) 9.4 K/uL (1.8-7.7); NEUTROPHILS % (AUTO) 82.3 % (42.2-75.2); PLATELET COUNT (AUTO) 363 K/uL (140-450); RED BLOOD CELL COUNT(AUTO) 2.66 MIL/uL (4.20-5.40)
--- NOTE | 2019-05-06 06:45 | NUR ---
FINGER STICK BLD SUGAR 115.LATEST BP 117/60. NO S/S OF HYPO/HYPERGLYCEMIA NOTED OVER 12 HRS.SAFETY MAINTAINED.
[2019-05-06 06:56] LABS: MAGNESIUM 1.6 mg/dL (1.8-2.4); PHOSPHORUS 1.9 mg/dL (2.5-4.9)
[2019-05-06] MEDS: ALBUTEROL SULFATE/IPRATROPIU 3 ML SOL IH SCH ×3 (07:02→19:25)
[2019-05-06 07:11] LABS: ANION GAP 6.6 (8-16); CARBON DIOXIDE 32.6 mmol/L (21-32); CHLORIDE 112 mmol/L (98-107); CREATININE 0.7 mg/dL (0.6-1.3); GLUCOSE 122 mg/dL (74-106); POTASSIUM 3.2 mmol/L (3.5-5.1); SODIUM SERUM 148 mmol/L (136-145); UREA NITROGEN, BLOOD 17 mg/dL (7-18)
--- NOTE | 2019-05-06 07:15 | NUR ---
RECEIVED REPORT FROM BUY BOAT OPERATOR NURSE FOR CONTINUITY OF CARE. PT IN STABLE CONDITION. RESPIRATIONS EVEN AND UNLABORED. IV INTACT AND PATENT. SAFETY MEASURES IN PLACE. BED IN LOW POSITION. BED ALARM ON. CALL LIGHT AT BEDSIDE. WILL CONTINUE TO MONITOR.
[2019-05-06 07:52] LABS: RED CELL DISTRIBUTION WIDTH 24.4 % (11.6-13.7)
[2019-05-06 07:54] LABS: WHITE BLOOD COUNT (AUTO) 11.4 K/uL (4.8-10.8)
--- NOTE | 2019-05-06 09:33 | NUR ---
CHANGED AND CLEANED AFTER BOWEL MOVEMENT. PT TOLERATED WELL. BED IN LOW POSITION. BED ALARM ON. CALL LIGHT AT BEDSIDE. WILL CONTINUE TO MONITOR.
[2019-05-06] MEDS: SPIRONOLACTONE 25 MG TAB PO SCH (11:04)
[2019-05-06] MEDS: LACTOBACILLUS RHAMNOSUS GG 1 EACH CAP PO SCH (11:04)
[2019-05-06] MEDS: FERROUS SULFATE 300 MG/5 ML UDC GT SCH ×2 (11:04→18:43)
[2019-05-06] MEDS: FAMOTIDINE 20 MG TAB PO SCH ×2 (11:05→21:44)
[2019-05-06] MEDS: ASCORBIC ACID 500 MG TAB PO SCH ×2 (11:05→18:38)
[2019-05-06] MEDS: CALCIUM CARB/VIT-D 500 MG/200 IU 1 TAB NG SCH ×2 (11:05→18:38)
[2019-05-06] MEDS: SODIUM PHOS / POTASSIUM PHOS 1 PKT PDR PO SCH ×2 (11:05→21:44)
[2019-05-06] MEDS: FUROSEMIDE 20 MG/2 ML VIAL IVP SCH ×2 (11:06→21:42)
[2019-05-06] MEDS: INSULIN LANTUS 100 UNITS/ML 10 ML VIAL SUBQ SCH (11:08)
--- NOTE | 2019-05-06 11:10 | NUR ---
PT SLEEPING RESPIRATIONS EVEN AND UNLABORED. BED IN LOW POSITION. BED ALARM ON. CALL LIGHT AT BEDSIDE. WILL CONTINUE TO MONITOR.
--- NOTE | 2019-05-06 13:50 | NUR ---
FAMILY AT BEDSIDE. PT IN STABLE CONDITION. BED IN LOW POSITION. CALL LIGHT AT BEDSIDE. WILL CONTINUE TO MONITOR.
[2019-05-06] MEDS: SKINTEGRITY HYDROGEL TP SCH (14:07)
[2019-05-06] MEDS: SODIUM FERRIC GLUCONATE 125 MG in NACL 0.9% 100 ML IV SCH (14:56)
[2019-05-06] MEDS: INSULIN LISPRO SLIDING SCALE 100 UNITS/ML VIAL SUBQ PRN (15:12)
[2019-05-06] MEDS ORDERED: POTASSIUM CHLORIDE 40 MEQ in NACL 0.45% 1,000 ML IV SCH (15:15)
[2019-05-06] MEDS: MAG SULF 2000 MG/WATER PREMIX 100 ML IV SCH ×2 (16:43→18:49)
[2019-05-06] MEDS: BETAMETHASONE DIPROP 0.05% 15 GM TUBE TP SCH (16:44)
--- NOTE | 2019-05-06 16:45 | NUR ---
X-RAY AT BEDSIDE. PT TOLERATED WELL.
--- NOTE | 2019-05-06 18:01 | NUR ---
PT SPITTING UP GLUCERNA. PT STATED TOO SWEET. PT IN STABLE CONDITION. BED IN LOW POSITION. BED ALARM ON. CALL LIGHT AT BEDSIDE. WILL CONTINUE TO MONITOR.
--- NOTE | 2019-05-06 19:25 | NUR ---
GAVE REPORT TO ALTERATION INSPECTOR NURSE STANFORD FOR CONTINUITY OF CARE. PT IN STABLE CONDITION.
--- NOTE | 2019-05-06 19:27 | NUR ---
RECEIVED PT FROM GLADYS RN PT [id number] ON BED REST ON 2 LTS VIA NC , ON TELEMETRY ST IV ON RT HAND INFUSING MG RIDDER AT THIS TIME, PT REPOSITIONED IITIAL ASSESSMENT DONE
--- NOTE | 2019-05-06 19:37 | NUR ---
RECEIVED PT FROM AM SHIFT. PT IS NO RESPIRATORY DISTRESS AT THIS TIME: HR 89, RR 18, SPO2 94 ON 2L NC, AND A CLEAR BREATH SOUNDS. HHN TX GIVEN ORDERED WITH NO ADVERSE REACTION. PT WAS ALSO INFORMED TO CALL RN OR WELL POINT PUMPING SUPERVISOR FOR HHN PRN TX WHEN EXPERIENCING SOB. HOB > 30 DEGREES AND BVM AT BEDSIDE. WILL CONTINUE TO MONITOR PT.
[2019-05-06] MEDS: POTASSIUM CHLORIDE 20% 40 MEQ/15 ML UDC GT SCH ×2 (21:43→23:51)
--- NOTE | 2019-05-06 22:00 | NUR ---
PT REPOSITIONED Q2H NOT DISTRESS NOTED IV ON RT HAND INFUSING WELL , ON TELMETRY ST
[2019-05-07] VITALS: BP 137/63
[2019-05-07] MEDS: HYDRAGUARD CREAM TP SCH ×2 (01:00→12:52)
[2019-05-07] MEDS: Z-GUARD PASTE TP SCH ×2 (01:00→12:52)
--- NOTE | 2019-05-07 02:32 | NUR ---
;;PT SLEEPING WELL AFTER PAIN MEDIC GIVEN NOT DISTRESS NOTED
[2019-05-07 04:00] VITALS: BP 100/52
--- NOTE | 2019-05-07 04:00 | NUR ---
SPONGE BATH GIVEN LINEN CHANGED REPOSITIONED NOT DISTRESS NOTED IV ON RT HAND INFUSING WELL ON TEL SR
[2019-05-07] MEDS: MEROPENEM 500 MG in NACL 0.9% 50 ML IV SCH ×3 (04:39→21:36)
[2019-05-07] MEDS: BLOOD GLUCOSE MONITORING 1 DEV DEV FS SCH ×4 (05:56→21:56)
[2019-05-07] MEDS: MIDODRINE 5 MG TAB PO SCH ×3 (05:59→19:00)
--- NOTE | 2019-05-07 06:20 | NUR ---
PT AWAKE COOPERATIVE TO FOLLOW COMMANDS ON TELE SR NOT DISTRES NOTED PT WILL BE ENDORSED TO DAY SHIFT NURSE FOR CONTINUE OF CARE
[2019-05-07 06:35] LABS: BASOPHILS # (AUTO) 0.1 K/uL (0.00-0.22); BASOPHILS % (AUTO) 0.7 % (0.0-2.0); EOSINOPHILS # (AUTO) 0.2 K/uL (0-0.4); EOSINOPHILS % (AUTO) 2.4 % (0.0-4.0); HEMATOCRIT 25.7 % (36-48); HEMOGLOBIN 8.3 g/dL (12.0-16.0); LYMPHOCYTES % (AUTO) 9.4 % (20.5-51.1); MEAN CORPUSCULAR HEMOGLOBIN 32 pg (27-31); MEAN CORPUSCULAR HGB CONC 32 g/dL (33-37); MEAN CORPUSCULAR VOLUME 100.7 fL (80-94); MONOCYTES # (AUTO) 1.1 K/uL (0.8-1.0); MONOCYTES % (AUTO) 11.3 % (1.7-9.3); NEUTROPHILS # (AUTO) 7.7 K/uL (1.8-7.7); NEUTROPHILS % (AUTO) 76.2 % (42.2-75.2); PLATELET COUNT (AUTO) 408 K/uL (140-450); RED BLOOD CELL COUNT(AUTO) 2.55 MIL/uL (4.20-5.40); RED CELL DISTRIBUTION WIDTH 24.9 % (11.6-13.7); WHITE BLOOD COUNT (AUTO) 10.1 K/uL (4.8-10.8)
[2019-05-07 07:07] LABS: ANION GAP 7.7 (8-16); CARBON DIOXIDE 30.4 mmol/L (21-32); CHLORIDE 113 mmol/L (98-107); CREATININE 0.6 mg/dL (0.6-1.3); GLUCOSE 67 mg/dL (74-106); POTASSIUM 4.1 mmol/L (3.5-5.1); SODIUM SERUM 147 mmol/L (136-145); UREA NITROGEN, BLOOD 17 mg/dL (7-18)
[2019-05-07 07:11] LABS: MAGNESIUM 2.4 mg/dL (1.8-2.4); PHOSPHORUS 1.7 mg/dL (2.5-4.9)
--- NOTE | 2019-05-07 07:15 | NUR ---
RECEIVED REPORT FROM CAMP BOSS NURSE STANFORD FOR CONTINUITY OF CARE. PT IN STABLE CONDITION. RESPIRATIONS EVEN AND UNLABORED. IV INTACT AND PATENT. SAFETY MEASURES IN PLACE. BED IN LOW POSITION. BED ALARM ON. CALL LIGHT AT BEDSIDE. WILL CONTINUE TO MONITOR.
[2019-05-07 08:00] VITALS: BP 120/57
--- NOTE | 2019-05-07 08:00 | NUR ---
ATTEMPTED TO ADMINISTER BREATHING TX PT EATING AT THIS TIME WILL CHECK BACK AT A LATER TIME. PT NOT IN ANY DISTRESS OR SOB.
[2019-05-07] MEDS: ALBUTEROL SULFATE/IPRATROPIU 3 ML SOL IH SCH ×3 (08:59→19:17)
[2019-05-07] MEDS: INSULIN LANTUS 100 UNITS/ML 10 ML VIAL SUBQ SCH (09:00)
--- NOTE | 2019-05-07 09:30 | NUR ---
CLEANED, CHANGED, AND REPOSITIONED AT THIS TIME. PT TOLERATED WELL. BED IN LOW POSITION. BED ALARM ON. CALL LIGHT AT BEDSIDE. WILL CONTINUE TO MONITOR.
[2019-05-07] MEDS ORDERED: CALC-55 NG (10:04)
[2019-05-07] MEDS ORDERED: ALBU3SOL83 IH (10:04)
[2019-05-07] MEDS ORDERED: HYDGEL TP (10:04)
[2019-05-07] MEDS ORDERED: ZGUARD TP (10:04)
[2019-05-07] MEDS ORDERED: DIPRC TP (10:04)
[2019-05-07] MEDS ORDERED: FERR325E14 PO (10:04)
[2019-05-07] MEDS ORDERED: VITC500 PO (10:04)
[2019-05-07] MEDS ORDERED: PRO5 PO (10:04)
[2019-05-07] MEDS ORDERED: Hydraguard TP (10:04)
[2019-05-07] MEDS ORDERED: PHOS1PDR4 PO (10:04)
[2019-05-07] MEDS ORDERED: NEBU1DEV2 MC (10:04)
[2019-05-07] MEDS: ASCORBIC ACID 500 MG TAB PO SCH ×3 (10:07→17:00)
[2019-05-07] MEDS: FERROUS SULFATE 300 MG/5 ML UDC GT SCH ×3 (10:07→17:00)
[2019-05-07] MEDS: LACTOBACILLUS RHAMNOSUS GG 1 EACH CAP PO SCH (10:08)
[2019-05-07] MEDS: FUROSEMIDE 20 MG/2 ML VIAL IVP SCH ×2 (10:08→21:46)
[2019-05-07] MEDS: CALCIUM CARB/VIT-D 500 MG/200 IU 1 TAB NG SCH (10:08)
[2019-05-07] MEDS: FAMOTIDINE 20 MG TAB PO SCH ×2 (10:08→21:00)
[2019-05-07] MEDS: SODIUM PHOS / POTASSIUM PHOS 1 PKT PDR PO SCH ×2 (10:08→21:00)
[2019-05-07] MEDS: BETAMETHASONE DIPROP 0.05% 15 GM TUBE TP SCH (10:09)
[2019-05-07] MEDS: SPIRONOLACTONE 25 MG TAB PO SCH (10:09)
--- NOTE | 2019-05-07 11:24 | NUR ---
FAMILY AT BEDSIDE. PT IN STABLE CONDITION. BED IN LOW POSITION. BED ALARM ON. CALL LIGHT AT BEDSIDE. WILL CONTINUE TO MONITOR.
--- NOTE | 2019-05-07 11:45 | NUR ---
SPOKE WITH ALISON FROM [facility] . GAVE REPORT FOR CONTINUITY OF CARE. ALL QUESTIONS ANSWERED AT THIS TIME. ALISON VERBALIZED UNDERSTANDING OF INSTRUCTIONS.
[2019-05-07 12:00] VITALS: BP 114/61
[2019-05-07] MEDS: SKINTEGRITY HYDROGEL TP SCH (12:53)
--- NOTE | 2019-05-07 14:45 | NUR ---
FAMILY REQUEST TO SPEAK WITH CHERRY GRIJALVA FOR CONCERNS ABOUT PT GOING HOME ON HOSPICE. DR. HUTTON AT BEDSIDE TO TALK WITH FAMILY.
[2019-05-07] MEDS: SODIUM FERRIC GLUCONATE 125 MG in NACL 0.9% 100 ML IV SCH (14:52)
--- NOTE | 2019-05-07 15:45 | NUR ---
[facility] SHOWS UP TO TAKE PT. EXPLAINED TO TRANSPORT TEAM PT PLAN OF CARE CHANGED.
[2019-05-07 16:00] VITALS: BP 105/48
[2019-05-07] MEDS ORDERED: MERO500P2 IV (16:59)
--- NOTE | 2019-05-07 17:38 | NUR ---
PT REFUSED ORDERED DUE MEDICATIONS AT THIS TIME AND REFUSED TO EAT. PT STATED FEELING THAT SHE TIRED AND WANTS TO BE LEFT ALONE. PT UPSET AT THIS TIME.
--- NOTE | 2019-05-07 19:20 | NUR ---
RECEIVED ENDORSEMENT AT BEDSIDE FR. AM SHIFT RN. PATIENT IS AWAKE AND CONFUSED. NO SOB NOTED. NO C/O PAIN AT THIS TIME. ON NASAL CANNULA AT 2LPM. RESPIRATION EVEN AND UNLABORED. IV SITE AT LEFT HAND GAUGE 20. PLAN OF CARE WAS DISCUSSED. CALL LIGHT WITHIN REACH AT ALL TIMES.
--- NOTE | 2019-05-07 19:24 | NUR ---
GAVE REPORT TO HOME ENERGY INSPECTOR NURSE AT THIS TIME. PT IN STABLE CONDITION.
--- NOTE | 2019-05-07 19:25 | NUR ---
RECEIVED REPORT FROM AM SHIFT. PT IS NO RESPIRATORY DISTRESS AT THIS TIME: HR 81, RR 20, SPO2 96% ON NC, AND A COARSE BILATERAL BREATH SOUNDS. HHN TX GIVEN ORDERED WITH NO ADVERSE REACTION. PT WAS ALSO INFORMED TO CALL RN OR MANAGER MASSAGE DEPARTMENT FOR HHN PRN TX WHEN EXPERIENCING SOB. HOB > 30 DEGREES AND BVM AT BEDSIDE. WILL CONTINUE TO MONITOR PT.
[2019-05-07 20:00] VITALS: BP 112/60
--- NOTE | 2019-05-07 22:00 | NUR ---
ADMINISTERED DUE IV MEDS PER MD ORDER. TOLERATED WELL. NO A/R NOTED.
[2019-05-07] MEDS: INSULIN LISPRO SLIDING SCALE 100 UNITS/ML VIAL SUBQ PRN (22:01)
--- NOTE | 2019-05-07 22:08 | NUR ---
PATIENT REFUSED PO MEDS 3X. PATIENT SAID SHE'LL VOMIT. EXPLAINED RISKS AND BENEFITS BUT STILL REFUSED. NOT IN ANY ACUTE DISTRESS. CONTINUE TO MONITOR. CALL LIGHT WITHIN REACH.
[2019-05-08] VITALS: BP 125/59
--- NOTE | 2019-05-08 00:13 | NUR ---
PATIENT IS SLEEPING. NO SOB NOTED. RESPIRATION EVEN AND UNLABORED.
[2019-05-08] MEDS: HYDRAGUARD CREAM TP SCH ×2 (02:34→12:30)
[2019-05-08] MEDS: Z-GUARD PASTE TP SCH ×2 (02:35→13:00)
[2019-05-08 04:00] VITALS: BP 104/53
[2019-05-08] MEDS: MEROPENEM 500 MG in NACL 0.9% 50 ML IV SCH ×3 (04:54→20:47)
--- NOTE | 2019-05-08 04:54 | NUR ---
ADMINISTERED MERREM IVPB. TOLERATED WELL. NO A/R NOTED. NO SOB NOTED.
[2019-05-08] MEDS: NACL 0.45% 1,000 ML IV SCH (05:00)
[2019-05-08] MEDS: ALBUTEROL SULFATE/IPRATROPIU 3 ML SOL IH SCH ×3 (06:20→19:16)
--- NOTE | 2019-05-08 07:10 | NUR ---
ENDORSED PATIENT TO AM SHIFT RN FOR CONTINUITY OF CARE. NO SOB NOTED.
--- NOTE | 2019-05-08 07:15 | NUR ---
RECEIVED PT FROM WAREHOUSE ORDER PULLER NURSESLIME, PT IS AWAKE AND LYING ON THE BED, WITH O2 2L NC IN PLACE, FALL PRECAUTION ENFORCED, IV LINE ON THE RT HAND G. 18 WITH IVF 1/2 NS AT 25ML/HR INFUSING, BILATERAL PITTING EDEMA WITH PSORIATIC SKIN ON BILATERAL LEGS, HEEL PROTECTORS AND MELTON CATHETER WERE IN PLACE WITH 300ML DRAIN IN BAG, URINE TEA COLORED URINE NOTED, PT ON O2 2L NC, NO SIGN OF DISTRESS BUT WITH PERIODS OF CONFUSION, WILL MONITOR PT.
[2019-05-08] MEDS: BLOOD GLUCOSE MONITORING 1 DEV DEV FS SCH ×4 (07:45→20:54)
[2019-05-08] MEDS: MIDODRINE 5 MG TAB PO SCH ×3 (07:52→18:45)
[2019-05-08 08:00] VITALS: BP 123/72
[2019-05-08] MEDS: FERROUS SULFATE 300 MG/5 ML UDC GT SCH ×3 (08:00→16:37)
[2019-05-08] MEDS: ASCORBIC ACID 500 MG TAB PO SCH ×3 (08:00→16:37)
[2019-05-08] MEDS: LACTOBACILLUS RHAMNOSUS GG 1 EACH CAP PO SCH (09:00)
[2019-05-08] MEDS: INSULIN LANTUS 100 UNITS/ML 10 ML VIAL SUBQ SCH (09:00)
[2019-05-08] MEDS: FUROSEMIDE 20 MG/2 ML VIAL IVP SCH ×2 (09:00→20:55)
[2019-05-08] MEDS: FAMOTIDINE 20 MG TAB PO SCH ×2 (09:00→20:41)
[2019-05-08] MEDS: SODIUM PHOS / POTASSIUM PHOS 1 PKT PDR PO SCH ×2 (09:00→20:41)
[2019-05-08] MEDS: SPIRONOLACTONE 25 MG TAB PO SCH (09:00)
--- NOTE | 2019-05-08 09:24 | NUR ---
PT WAS INFORMED RIGHT NOW OF THE AM SCHEDULED MEDICATIONS AND PT VERBALIZED REFUSAL TO TAKE THE ORAL MEDS, MD IS AWARE AND SPOKE TO DR. UNDERWOOD IN BEHALF OF DR. PACK, WILL MONITOR PT.
--- NOTE | 2019-05-08 10:00 | NUR ---
SCHEDULED LASIX WAS NOT GIVEN DUE TO PT'S BP IS 105/57, PULSE IS 78. DR. PACK WAS INFORMED.
[2019-05-08] MEDS: BETAMETHASONE DIPROP 0.05% 15 GM TUBE TP SCH (10:36)
[2019-05-08 11:30] LABS: CARBON DIOXIDE 24.5 mmol/L (21-32); CHLORIDE 113 mmol/L (98-107); CREATININE 0.7 mg/dL (0.6-1.3); GLUCOSE 133 mg/dL (74-106); POTASSIUM 4.5 mmol/L (3.5-5.1); SODIUM SERUM 148 mmol/L (136-145)
[2019-05-08 11:33] LABS: MAGNESIUM 2.3 mg/dL (1.8-2.4); PHOSPHORUS 2.5 mg/dL (2.5-4.9)
[2019-05-08 11:42] LABS: UREA NITROGEN, BLOOD 17 mg/dL (7-18)
[2019-05-08 12:00] VITALS: BP 102/61
--- NOTE | 2019-05-08 12:21 | NUR ---
BLOOD GLUCOSE CHECK DONE AND RESULT IS 121 AND NO INSULIN COVERAGE NEEDED, PT IS CALM AND NO SIGN OF DISTRESS NOTED. WILL MONITOR PT.
--- NOTE | 2019-05-08 12:34 | NUR ---
PT WAS GIVEN THE ORAL AND IVPB MEDICATIONS NOW, TOLERATED AND WILL MONITOR PT.
[2019-05-08] MEDS: SKINTEGRITY HYDROGEL TP SCH (13:00)
[2019-05-08] MEDS: SODIUM FERRIC GLUCONATE 125 MG in NACL 0.9% 100 ML IV SCH (14:49)
--- NOTE | 2019-05-08 14:49 | NUR ---
PT WAS GIVEN FERRLECIT IVPB NOW, WILL MONITOR PT.
[2019-05-08 16:00] VITALS: BP 113/57
--- NOTE | 2019-05-08 16:31 | NUR ---
BLOOD GLUCOSE WAS CHECKED AND RESULT IS 1421, NO INSULIN COVERAGE NEEDED. WILL MONITOR PT. Addendum: 05/08/19 at 1640 by Beti Acosta RN BLOOD GLUCOSE RESULT ON THE ABOVE NOTE IS 141.
--- NOTE | 2019-05-08 16:37 | NUR ---
PT WAS GIVEN ORAL MEDICATIONS NOW, NO SIGN OF DISTRESS NOTED AND WILL MONITOR PT.
[2019-05-08 17:50] LABS: BASOPHILS # (AUTO) 0.2 K/uL (0.00-0.22); BASOPHILS % (AUTO) 2.1 % (0.0-2.0); EOSINOPHILS # (AUTO) 0.2 K/uL (0-0.4); EOSINOPHILS % (AUTO) 2.5 % (0.0-4.0); HEMATOCRIT 28.3 % (36-48); HEMOGLOBIN 8.8 g/dL (12.0-16.0); LYMPHOCYTES # (AUTO) 0.7 K/uL (2.5-16.5); LYMPHOCYTES % (AUTO) 8.9 % (20.5-51.1); MEAN CORPUSCULAR HEMOGLOBIN 32 pg (27-31); MEAN CORPUSCULAR HGB CONC 31 g/dL (33-37); MEAN CORPUSCULAR VOLUME 103.9 fL (80-94); MONOCYTES # (AUTO) 0.9 K/uL (0.8-1.0); NEUTROPHILS # (AUTO) 6.3 K/uL (1.8-7.7); NEUTROPHILS % (AUTO) 75.5 % (42.2-75.2); PLATELET COUNT (AUTO) 369 K/uL (140-450); RED BLOOD CELL COUNT(AUTO) 2.72 MIL/uL (4.20-5.40); RED CELL DISTRIBUTION WIDTH 25.1 % (11.6-13.7); WHITE BLOOD COUNT (AUTO) 8.3 K/uL (4.8-10.8)
--- NOTE | 2019-05-08 18:45 | NUR ---
PT WAS GIVEN ORAL MEDICATION NOW.
--- NOTE | 2019-05-08 19:21 | NUR ---
ENDORSED PT TO PRINTING BINDERY ASSISTANT NURSE, SLIME,FOR CONTINUITY OF CARE. PT IS STABLE AT THIS TIME.
--- NOTE | 2019-05-08 19:22 | NUR ---
ENDORSEMENT RECEIVED AT BEDSIDE FROM AM SHIFT RN. PATIENT IS LYING IN BED IN FOWLERS POSITION. NO SOB NOTED. DENIES PAIN AND DISCOMFORT. IV FLUID INFUSING. PATIENT IS BEDBOUND. FULL CODE. NKA. FALL PRECAUTION PREVENTION OBSERVED. PLAN OF CARE WAS DISCUSSED. ON EMLTON CATHETER. INTACT AND PATENT. CALL LIGHT WITHIN REACH.
[2019-05-08 20:00] VITALS: BP 112/63
[2019-05-08] MEDS: INSULIN LISPRO SLIDING SCALE 100 UNITS/ML VIAL SUBQ PRN (20:35)
--- NOTE | 2019-05-08 20:54 | NUR ---
PATIENT IS RESTING. AROUSABLE THRU VERBAL STIMULI. NO SOB NOTED. BLOOD PRESSURE CHECKED 93/48. FUROSEMIDE 20MG IVP NOT GIVEN, OTHER DUE MEDS GIVEN ORDERED. PATIENT TOLERATED IT WELL. NO A/R NOTED. ON O2 VIA NC AT 2LPM. INFECTIOUS DISEASE DOCTOR CAME IN AND SEE THE PATIENT. CONTINUE TO MONITOR.
--- NOTE | 2019-05-08 22:22 | NUR ---
PATIENT IS ASLEEP AT THIS TIME. RESPIRATION EVEN AND UNLABORED.
[2019-05-09 00:04] VITALS: BP 101/59
[2019-05-09] MEDS: HYDRAGUARD CREAM TP SCH ×2 (00:18→12:24)
--- NOTE | 2019-05-09 00:18 | NUR ---
APPLIED HYDRAGUARD AND Z-GUARD TO BLE ORDERED. PATIENT IS RESTING. NO DISTRESS NOTED.
[2019-05-09] MEDS: Z-GUARD PASTE TP SCH ×2 (00:19→12:24)
--- NOTE | 2019-05-09 01:49 | NUR ---
PATIENT IS SLEEPING. RESPIRATION EVEN AND UNLABORED. NOT IN ANY ACUTE DISTRESS.
--- NOTE | 2019-05-09 02:44 | NUR ---
NURSING ROUNDS DONE. PATIENT IS AWAKE. NO SOB NOTED. ON O2 AT 2LPM VIA NC. CALL LIGHT WITHIN REACH
[2019-05-09 04:00] VITALS: BP 110/55
[2019-05-09] MEDS: MEROPENEM 500 MG in NACL 0.9% 50 ML IV SCH ×3 (04:57→20:15)
[2019-05-09] MEDS: NACL 0.45% 1,000 ML IV SCH (05:00)
--- NOTE | 2019-05-09 05:03 | NUR ---
ADMINISTERD MERREM 500MG IVPB ORDERED. NO A/R NOTED. NO SOB NOTED
[2019-05-09] MEDS: ALBUTEROL SULFATE/IPRATROPIU 3 ML SOL IH SCH ×3 (06:23→19:06)
[2019-05-09 06:30] LABS: BASOPHILS # (AUTO) 0.2 K/uL (0.00-0.22); BASOPHILS % (AUTO) 2.1 % (0.0-2.0); EOSINOPHILS # (AUTO) 0.2 K/uL (0-0.4); EOSINOPHILS % (AUTO) 2.4 % (0.0-4.0); HEMATOCRIT 27.3 % (36-48); HEMOGLOBIN 8.6 g/dL (12.0-16.0); LYMPHOCYTES # (AUTO) 0.5 K/uL (2.5-16.5); MEAN CORPUSCULAR HEMOGLOBIN 32 pg (27-31); MEAN CORPUSCULAR HGB CONC 32 g/dL (33-37); MEAN CORPUSCULAR VOLUME 102.1 fL (80-94); MONOCYTES # (AUTO) 0.7 K/uL (0.8-1.0); NEUTROPHILS # (AUTO) 6.9 K/uL (1.8-7.7); PLATELET COUNT (AUTO) 400 K/uL (140-450); RED BLOOD CELL COUNT(AUTO) 2.68 MIL/uL (4.20-5.40); RED CELL DISTRIBUTION WIDTH 24.9 % (11.6-13.7); WHITE BLOOD COUNT (AUTO) 8.5 K/uL (4.8-10.8)
[2019-05-09] MEDS: BLOOD GLUCOSE MONITORING 1 DEV DEV FS SCH ×4 (06:45→20:15)
[2019-05-09] MEDS: MIDODRINE 5 MG TAB PO SCH ×3 (06:50→18:24)
[2019-05-09 06:52] LABS: CHLORIDE 110 mmol/L (98-107); CREATININE 0.4 mg/dL (0.6-1.3); GLUCOSE 111 mg/dL (74-106); POTASSIUM 4.3 mmol/L (3.5-5.1); SODIUM SERUM 144 mmol/L (136-145); UREA NITROGEN, BLOOD 15 mg/dL (7-18)
--- NOTE | 2019-05-09 06:53 | NUR ---
ADMINISTERED DUE MEDS PER MD ORDER. TOLERATED WELL. NO SOB NOTED.
[2019-05-09 07:01] LABS: MAGNESIUM 2.1 mg/dL (1.8-2.4); PHOSPHORUS 2.4 mg/dL (2.5-4.9)
[2019-05-09 07:07] LABS: NEUTROPHILS % (AUTO) 81.5 % (42.2-75.2)
[2019-05-09 07:11] LABS: ANION GAP 7.6 (8-16); CARBON DIOXIDE 30.7 mmol/L (21-32)
--- NOTE | 2019-05-09 07:20 | NUR ---
ENDORSED PATIENT AT BEDSIDE TO AM SHIFT RN FOR CONTINUITY OF CARE. NO SOB NOTED.
--- NOTE | 2019-05-09 07:20 | NUR ---
RECEIVED BEDSIDE REPORT FROM INSPECTOR FINAL ASSEMBLY ELECTRICAL NURSE. PT IS AWAKE IN BED, ON 2L O2 NC. NO S/S OF DISTRESS NOTED. IV SITE R HAND 22 G, INFUSING 1/2 NS 25 ML/HR. PT HAS A SACRAL WOUND COVERED BY OPTIFOAM DRESSING. FALL PRECAUTIONS IN PLACE. CALL LIGHT IS WITHIN REACH. WILL CONTINUE TO MONITOR.
[2019-05-09 08:00] VITALS: BP 105/56
[2019-05-09] MEDS: FERROUS SULFATE 300 MG/5 ML UDC GT SCH ×3 (08:00→16:53)
[2019-05-09] MEDS: ASCORBIC ACID 500 MG TAB PO SCH ×3 (08:00→16:53)
[2019-05-09] MEDS: FUROSEMIDE 20 MG/2 ML VIAL IVP SCH ×2 (09:00→20:15)
[2019-05-09] MEDS: SODIUM PHOS / POTASSIUM PHOS 1 PKT PDR PO SCH ×2 (09:00→20:13)
[2019-05-09] MEDS: INSULIN LANTUS 100 UNITS/ML 10 ML VIAL SUBQ SCH (09:00)
[2019-05-09] MEDS: LACTOBACILLUS RHAMNOSUS GG 1 EACH CAP PO SCH (09:00)
[2019-05-09] MEDS: BETAMETHASONE DIPROP 0.05% 15 GM TUBE TP SCH (09:00)
[2019-05-09] MEDS: FAMOTIDINE 20 MG TAB PO SCH ×2 (09:00→20:13)
[2019-05-09] MEDS: CALCIUM CARB/VIT-D 500 MG/200 IU 1 TAB NG SCH (09:00)
[2019-05-09] MEDS: SPIRONOLACTONE 25 MG TAB PO SCH (09:00)
--- NOTE | 2019-05-09 09:56 | NUR ---
PT CLEANED, CHANGED AND REPOSITIONED. WOUND CARE DONE PER ORDER. PT TOLERATED WELL.
--- NOTE | 2019-05-09 11:12 | NUR ---
AM MEDS ADMINISTERED, PT TOLERATED WELL . ORDERED IV LASIX HELD DUE TO DECREASED BP.
[2019-05-09 12:00] VITALS: BP 112/61
[2019-05-09] MEDS: INSULIN LISPRO SLIDING SCALE 100 UNITS/ML VIAL SUBQ PRN ×2 (12:09→17:36)
[2019-05-09] MEDS: SKINTEGRITY HYDROGEL TP SCH (12:24)
--- NOTE | 2019-05-09 13:20 | NUR ---
PT RECEIVING BREATHING TX AT THIS TIME.
[2019-05-09 16:00] VITALS: BP 113/56
--- NOTE | 2019-05-09 18:28 | NUR ---
PT REFUSED TO TAKE SCHEDULED MIDODRINE. HER LATEST BP IS 113/56
--- NOTE | 2019-05-09 19:17 | NUR ---
RECEIVED PATIENT ON ROOM AIR, PT HAD REMOVED NASAL CANNULA, PULSE OX SAT 87%. SCHEDULED BREATHING TREATMENT ADMINISTERED. TOLERATED TX WELL WITHOUT ADVERSE SIDE EFFECTS. PLACED PT BACK ON NASAL CANNULA AT 3LPM, PULSE OX SAT 94%. PT MADE AWARE OF ORDERED MEDICATION FREQUENCY AND INSTRUCTED TO CALL NEEDED FOR SOB. NO ACUTE RESPIRATORY DISTRESS NOTED AT THIS TIME. WILL CONTINUE TO MONITOR.
--- NOTE | 2019-05-09 19:18 | NUR ---
RECEIVED BEDSIDE REPORT FROM DAY SHIFT NURSE, TOMAS. PT IS AWAKE IN BED, CURRENTLY RECEIVING BREATHING TX BY RT. IV SITE R HAND 22 G, INFUSING 1/2 NS 25 ML/HR, PATENT, INTACT AND ASYMPTOMATIC. PT HAS A SACRAL WOUND COVERED BY OPTIFOAM DRESSING. FALL PRECAUTIONS IN PLACE. CALL LIGHT IS WITHIN REACH. WILL CONTINUE TO MONITOR.
--- NOTE | 2019-05-09 19:24 | NUR ---
ENDORSED PT TO TABLEAU LEAD NURSE IN STABLE CONDITION
[2019-05-09 20:00] VITALS: BP 132/64
--- NOTE | 2019-05-09 20:15 | NUR ---
GIVEN MERREM, LASIX, NEUTRA-PHOS, AND PEPCID MD ORDERED. PT TOLERATED WELL.
--- NOTE | 2019-05-09 22:16 | NUR ---
PT SLEEPING IN BED COMFORTABLY. NO ACUTE DISTRESS NOTED.
[2019-05-10] VITALS: BP 118/51
--- NOTE | 2019-05-10 00:02 | NUR ---
PT SLEEPING IN BED COMFORTABLY. VS WITHIN PT'S BASELINE. WILL CONTINUE TO MONITOR.
[2019-05-10] MEDS: Z-GUARD PASTE TP SCH ×2 (01:08→12:59)
[2019-05-10] MEDS: HYDRAGUARD CREAM TP SCH ×2 (01:08→12:58)
--- NOTE | 2019-05-10 02:35 | NUR ---
PT SLEEPING IN BED COMFORTABLY. NO ACUTE DISTRESS NOTED.
[2019-05-10 04:00] VITALS: BP 108/55
[2019-05-10] MEDS: MEROPENEM 500 MG in NACL 0.9% 50 ML IV SCH ×2 (04:02→12:57)
--- NOTE | 2019-05-10 04:02 | NUR ---
GIVEN MERREM MD ORDERED. PT TOLERATED WELL.
[2019-05-10] MEDS: NACL 0.45% 1,000 ML IV SCH (05:00)
[2019-05-10] MEDS: BLOOD GLUCOSE MONITORING 1 DEV DEV FS SCH ×2 (06:33→11:30)
[2019-05-10] MEDS: MIDODRINE 5 MG TAB PO SCH ×2 (06:34→13:00)
--- NOTE | 2019-05-10 06:34 | NUR ---
GIVEN MIDODRINE MD ORDERED. BS CHECKED, 39. GIVEN D50 MD ORDERED. PT TOLERATED WELL. WILL REASSESS BS.
[2019-05-10] MEDS: ALBUTEROL SULFATE/IPRATROPIU 3 ML SOL IH SCH ×2 (06:51→13:31)
--- NOTE | 2019-05-10 07:23 | NUR ---
BS CHECKED AGAIN, 86 WITHIN NORMAL RANGE.
--- NOTE | 2019-05-10 07:24 | NUR ---
RECEIVED REPORT FROM LIFE SKILLS COORDINATOR NURSE CHARLY FOR CONTINUITY OF CARE. PT IN STABLE CONDITION. RESPIRATIONS EVEN AND UNLABORED. IV INTACT AND PATENT. SAFETY MEASURES IN PLACE AND PATENT. CALL LIGHT AT BEDSIDE. BED ALARM ON. BED IN LOW POSITION. WILL CONTINUE TO MONITOR.
[2019-05-10 08:00] VITALS: BP 103/58
[2019-05-10] MEDS: INSULIN LANTUS 100 UNITS/ML 10 ML VIAL SUBQ SCH (09:00)
[2019-05-10] MEDS: SODIUM PHOS / POTASSIUM PHOS 1 PKT PDR PO SCH (09:11)
[2019-05-10] MEDS: FUROSEMIDE 20 MG/2 ML VIAL IVP SCH (09:11)
[2019-05-10] MEDS: FAMOTIDINE 20 MG TAB PO SCH (09:12)
[2019-05-10] MEDS: LACTOBACILLUS RHAMNOSUS GG 1 EACH CAP PO SCH (09:12)
[2019-05-10] MEDS: SPIRONOLACTONE 25 MG TAB PO SCH (09:12)
[2019-05-10] MEDS: BETAMETHASONE DIPROP 0.05% 15 GM TUBE TP SCH (09:13)
[2019-05-10] MEDS: CALCIUM CARB/VIT-D 500 MG/200 IU 1 TAB NG SCH (09:14)
[2019-05-10] MEDS: ASCORBIC ACID 500 MG TAB PO SCH ×2 (09:16→12:00)
[2019-05-10] MEDS: FERROUS SULFATE 300 MG/5 ML UDC GT SCH ×2 (09:16→12:00)
--- NOTE | 2019-05-10 09:16 | NUR ---
GAVE ORDERED DUE MEDICATIONS AT THIS TIME. PT TOLERATED WELL. RESPIRATIONS EVEN AND UNLABORED. BED IN LOW POSITION. CALL LIGHT AT BEDSIDE. WILL CONTINUE TO MONITOR.
--- NOTE | 2019-05-10 10:03 | NUR ---
SPOKE TO PAGE AT [facility]. GAVE INSTRUCTIONS FOR CONTINUITY OF CARE. PAGE VERBALIZED UNDERSTANDING OF INSTRUCTIONS. ALL QUESTIONS ANSWERED. PAGE INFORMED THAT TRANSPORTATION AT 1400 BY [facility].
--- NOTE | 2019-05-10 11:10 | NUR ---
WOUND CARE EVALUATION DONE WITH PRIMARY RN, RIGHT LATERAL BUTTOCK, SACRAL COCCYX AND RIGHT AND LEFT INNER BUTTOCKS RESPONDING TO TX, DENUDED SKIN ARE CLEARED, AREAS ARE IMPROVING. PHOTOS TAKEN BY PRIMARY RN.
--- NOTE | 2019-05-10 12:01 | NUR ---
CHANGED AND DRESSED TO PREPARE FOR TRANSPORT TO HOME FOR HOSPICE CARE. TOLERATED WELL. RESPIRATIONS EVEN AND UNLABORED. BED IN LOW POSITION. CALL LIGHT AT BEDSIDE. BED ALARM ON. WILL CONTINUE TO MONITOR.
[2019-05-10] MEDS: SKINTEGRITY HYDROGEL TP SCH (12:58)
--- NOTE | 2019-05-10 13:59 | NUR ---
PT SIGNED CONSENT FOR AUTHORIZATION OF RELEASE OF MEDICAL RECORDS FOR PT FAMILY.
--- NOTE | 2019-05-10 14:20 | NUR ---
GAVE DISCHARGE INSTRUCTIONS PT VERBALIZED UNDERSTANDING. REMOVED IV, LUMEN IN TACT. REMOVED ID BAND. GAVE REPORT TO TRANSPORT TEAM FOR CONTINUITY OF CARE. PT PLACE ON GURNEY IN STABLE CONDITION. PT TO GO HOME ON HOSPICE.
== END 2019-05-10 14:20 | disposition hospice, home (50) | DRG 870 ==
LOC: MED 08:44 → MIC 13:12 → MERGE 13:12 → MIC 04-30 05:30 → MTU 05-03 18:40
PROVIDERS: ADMIT General Practice; ATTEND General Practice
PROC: 02HV33Z Insertion of Infusion Device into Superior Vena Cava, Percutaneous Approach (ICD-10-PCS; principal; 2019-04-26)
PROC: B548ZZA Ultrasonography of Superior Vena Cava, Guidance (ICD-10-PCS; 2019-04-26)
PROC: 30233N1 Transfusion of Nonautologous Red Blood Cells into Peripheral Vein, Percutaneous Approach (ICD-10-PCS; 2019-04-26)
PROC: 5A1955Z Respiratory Ventilation, Greater than 96 Consecutive Hours (ICD-10-PCS; 2019-04-27)
PROC: 0BH17EZ Insertion of Endotracheal Airway into Trachea, Via Natural or Artificial Opening (ICD-10-PCS; 2019-04-27)
DX: A41.9 Sepsis, unspecified organism (principal); J69.0 Pneumonitis due to inhalation of food and vomit; R65.21 Severe sepsis with septic shock; N17.0 Acute kidney failure with tubular necrosis; E43 Unspecified severe protein-calorie malnutrition; J96.01 Acute respiratory failure with hypoxia; G93.41 Metabolic encephalopathy; I50.43 Acute on chronic combined systolic (congestive) and diastolic (congestive) heart failure; K92.2 Gastrointestinal hemorrhage, unspecified; N39.0 Urinary tract infection, site not specified; C78.7 Secondary malignant neoplasm of liver and intrahepatic bile duct; E87.0 Hyperosmolality and hypernatremia; Z68.34 Body mass index [BMI] 34.0-34.9, adult; B96.20 Unspecified Escherichia coli [E. coli] as the cause of diseases classified elsewhere; D64.9 Anemia, unspecified; E11.65 Type 2 diabetes mellitus with hyperglycemia; E78.00 Pure hypercholesterolemia, unspecified; E87.5 Hyperkalemia; I11.0 Hypertensive heart disease with heart failure; J45.909 Unspecified asthma, uncomplicated; R13.11 Dysphagia, oral phase; C80.1 Malignant (primary) neoplasm, unspecified; D47.3 Essential (hemorrhagic) thrombocythemia; E87.6 Hypokalemia; K72.90 Hepatic failure, unspecified without coma; E78.5 Hyperlipidemia, unspecified; E83.42 Hypomagnesemia; E83.39 Other disorders of phosphorus metabolism; L30.9 Dermatitis, unspecified; E87.8 Other disorders of electrolyte and fluid balance, not elsewhere classified; E66.01 Morbid (severe) obesity due to excess calories; Z51.5 Encounter for palliative care; Z79.52 Long term (current) use of systemic steroids; Z82.5 Family history of asthma and other chronic lower respiratory diseases; Z90.710 Acquired absence of both cervix and uterus; Z90.49 Acquired absence of other specified parts of digestive tract; Z79.84 Long term (current) use of oral hypoglycemic drugs; Z79.899 Other long term (current) drug therapy
CPT/HCPCS: 36415; 36600; 70450; 71045; 74018; 76604; 76700; 80048; 80053; 80076; 80202; 81001; 82040; 82140; 82150; 82272; 82607; 82728; 82746; 82803; 82948; 83036; 83516; 83540; 83605; 83690; 83735; 83880; 84100; 84439; 84443; 84484; 85025; 85045; 85610; 85730; 86704; 86706; 86708; 86709; 86803; 86886; 86900; 86901; 86920; 87040; 87070; 87081; 87086; 87186; 87205; 87340; 87804; 89220; 92526; 92610; 94002; 94003; 94640; 96365; 97110; 97112; 97161-GP; 97530; 99285; A4649; A6248; C9113; J0696; J1450; J1642; J1815; J1940; J2060; J2185; J2250; J2370; J2405; J2543; J2916; J2920; J2930; J3010; J3370; J3475; J3480; J3490; J7030; J7042; J7060; P9016; P9046; Q0092; Q0163